=== PATIENT | female | born 1995 | race Caucasian/White ===

== ENCOUNTER 2018-06-24 08:32 | Emergency (ER) | payer OTHER, SELFPAY ==
[2018-06-24 08:46] VITALS: PULSE 76; RESP 12; TEMP 36.5; O2SAT 99
--- NOTE | 2018-06-24 09:47 | DI.RAD_ITS ---
SYMPTOMS/DIAGNOSIS: FELL 3 DAYS AGO LANDING ON LT ANTERIOR KNEE LEFT KNEE: Four views. No bone or joint abnormality is identified. The soft tissues are unremarkable. IMPRESSION: Negative examination.
--- NOTE | 2018-06-24 09:52 | W.ED.GENAD ---
Discharge Plan Discharge Details Chief Complaint: Orthopedic Clinical Impression: Knee contusion, Knee abrasion Reason For Visit: LEFT KNEE INJURY Primary Care Provider: Zoraida Dc ED Provider: Morgan Fernandez Disposition Patient Disposition: HOME Home Meds and New Rx's Prescriptions: New ibuprofen 600 mg tablet 600 mg PO TID MDD 1800mg PRN (Reason: pain) Qty: 30 RF: 0 No Action norgestimate-ethinyl estradiol [Sprintec (28)] 1 EACH tablet 1 tab-cap PO DAILY Qty: 1 RF: 12 Discharge Instructions Additional Instructions: Please use juan manuel wrap during the day and ice at night. Keep abrasion clean and dry no ointments. Rest knee as much as possible during the day. Follow up with orthopedics if no improvement in three weeks. Return to ED if signs of infection develop. Referrals: Matt Nguyen MD [ [facility] STAFF PHYSICIAN] - Discharge Data Discharge Date/Time-TO BE ENTERED AT DEPARTURE: 06/24/18 10:51 HPI - General Adult General Mode of arrival: ambulatory (with limp. ). Date/Time Provider Initiated Documentation: 06/24/18 09:42. Limitations to Documentation: no limitations. Information obtained by: patient and RN notes reviewed. History of Present Illness 22 year old F presents to the emergency department with the chief complaint of Left knee trauma, described as moderate (pain), Quality is described as aching, and is localized to the left and lower extremity.pain Patient reports no radiation. Patient started experiencing this day(s) (3) and it has been constant. Movement worsens symptoms . Patient notes no other symptoms.. Patient did receive the following treatments prior to arrival, none HPI Narrative: Patient reports falling three days as she slipped in her barn on cow manure wearing flip flops. She landed on left anterior knee. She did clean the abrasion to the anterior knee and notices pain with movement and ambulation since the injury. Related Data Previous Rx's Medication Instructions Recorded ibuprofen 600 mg PO TID PRN #30 tab MDD 06/24/18 1800mg Allergies Allergy/AdvReac Type Severity Reaction Status Date / Time clarithromycin [From Biaxin] Allergy Unknown Unverified 06/24/18 08:50 erythromycin estolate Allergy Unknown Unverified 06/24/18 08:50 [From Ilosone] DUST MITES Allergy Unknown Uncoded 06/24/18 08:50 General Stated Complaint: Orthopedic JOMAR: 4 Review of Systems Constitutional Comments: Patient reports tetanus status as up dated this year2017. Musculoskeletal Reports abnormal gait (gaurding left leg) and Reports joint swelling (left knee) Neurologic Reports abnormal gait (gaurding left leg) PFSH Family History Mother No problems noted. Father Diabetes Essential hypertension COPD (chronic obstructive pulmonary disease) Sister No problems noted. Brother Diabetes Grandfather No problems noted. Grandfather Cerebrovascular accident Grandmother Essential hypertension Grandmother No problems noted. Social History Smoking/Tobacco Use Status: Current-Occasional Surgical History ILEUS (11/12/98) Myringotomy w/ PE (pressure equalizing) tubes Tonsillectomy (10/26/12) Exam Const General: cooperative and comfortable Nutritional Appearance: well nourished Orientation: alert, awake and oriented x3 Extrem General: normal capillary refill, no pedal edema, no calf tenderness, abnormal gait (limp) and limp Elbow/forearm/wrist images: 1. Abrasion anterior, with crepitus superior to the patella both medial and lateral. Pain greatest along medial joint line. Left lower extremity: knee Details: abnormal to inspection (abrasion anterior over patella with tissue swelling. Inflammatory redness from abrasion noted without ascending redness or lymphadnopathy. ) Details: erythematous; knee not obviously dislocated, patella not obviously dislocated and without a suprapatellar bulge, tenderness (greatest along medial joint line. ) Location: of the patella (midline ), abnormal ROM (limited flexions secondary to pain) Details: pain with active ROM, knee ligament exam normal, abrasion and crepitus Location: at the patella (superior to patella); Paris's Test not performed and Apley's Test not performed; abnormal ROM (limited flexion secondary to pain. No laxity appreciated. ) Knee images: 1. abrasion and crepitus superior to the patella. Pain greatest along medial joint line. Psych Appearance: well kempt Mental Status: mental status grossly normal Course Vital Signs Temperature 36.5 C 06/24/18 08:46 Pulse 76 06/24/18 08:46 Respiratory Rate 12 06/24/18 08:46 Pulse Oximetry 99 06/24/18 08:46 Temperature 36.5 C 06/24/18 08:46 Pulse 76 06/24/18 08:46 Respiratory Rate 12 06/24/18 08:46 Pulse Oximetry 99 06/24/18 08:46
[2018-06-24] MEDS: Ibuprofen 600 MG TAB PO (09:57)
--- NOTE | 2018-06-24 10:00 | ED.GENADUL_ITS ---
Discharge Plan Discharge Details Chief Complaint: Orthopedic Clinical Impression: Knee contusion, Knee abrasion Reason For Visit: LEFT KNEE INJURY Primary Care Provider: Zoraida Dc ED Provider: Morgan Fernandez Disposition Patient Disposition: HOME Home Meds and New Rx's Prescriptions: New ibuprofen 600 mg tablet 600 mg PO TID MDD 1800mg PRN (Reason: pain) Qty: 30 RF: 0 No Action norgestimate-ethinyl estradiol [Sprintec (28)] 1 EACH tablet 1 tab-cap PO DAILY Qty: 1 RF: 12 Discharge Instructions Additional Instructions: Please use juan manuel wrap during the day and ice at night. Keep abrasion clean and dry no ointments. Rest knee as much as possible during the day. Follow up with orthopedics if no improvement in three weeks. Return to ED if signs of infection develop. Referrals: Matt Nguyen MD [ [facility] STAFF PHYSICIAN] - Discharge Data Discharge Date/Time-TO BE ENTERED AT DEPARTURE: 06/24/18 10:51 HPI - General Adult General Mode of arrival: ambulatory (with limp. ) . Date/Time Provider Initiated Documentation: 06/24/18 09:42 . Limitations to Documentation: no limitations . Information obtained by: patient and RN notes reviewed . History of Present Illness 22 year old F presents to the emergency department with the chief complaint of Left knee trauma, described as moderate (pain), Quality is described as aching, and is localized to the left and lower extremity. pain Patient reports no radiation. Patient started experiencing this day(s) (3) and it has been constant. Movement worsens symptoms . Patient notes no other symptoms.. Patient did receive the following treatments prior to arrival, none HPI Narrative: Patient reports falling three days as she slipped in her barn on cow manure wearing flip flops. She landed on left anterior knee. She did clean the abrasion to the anterior knee and notices pain with movement and ambulation since the injury. Related Data Previous Rx's Medication Instructions Recorded ibuprofen 600 mg PO TID PRN #30 tab MDD 06/24/18 1800mg Allergies Allergy/AdvReac Type Severity Reaction Status Date / Time clarithromycin [From Biaxin] Allergy Unknown Unverified 06/24/18 08:50 erythromycin estolate Allergy Unknown Unverified 06/24/18 08:50 [From Ilosone] DUST MITES Allergy Unknown Uncoded 06/24/18 08:50 General Stated Complaint: Orthopedic JOMAR: 4 Review of Systems Constitutional Comments: Patient reports tetanus status as up dated this year2017. Musculoskeletal Reports abnormal gait (gaurding left leg) and Reports joint swelling (left knee) Neurologic Reports abnormal gait (gaurding left leg) PFSH Family History Mother No problems noted. Father Diabetes Essential hypertension COPD (chronic obstructive pulmonary disease) Sister No problems noted. Brother Diabetes Grandfather No problems noted. Grandfather Cerebrovascular accident Grandmother Essential hypertension Grandmother No problems noted. Social History Smoking/Tobacco Use Status: Current-Occasional Surgical History ILEUS (11/12/98) Myringotomy w/ PE (pressure equalizing) tubes Tonsillectomy (10/26/12) Exam Const General: cooperative and comfortable Nutritional Appearance: well nourished Orientation: alert, awake and oriented x3 Extrem General: normal capillary refill, no pedal edema, no calf tenderness, abnormal gait (limp) and limp Elbow/forearm/wrist images: 2 1. Abrasion anterior, with crepitus superior to the patella both medial and lateral. Pain greatest along medial joint line. Left lower extremity: knee Details: abnormal to inspection (abrasion anterior over patella with tissue swelling. Inflammatory redness from abrasion noted without ascending redness or lymphadnopathy. ) Details: erythematous; knee not obviously dislocated, patella not obviously dislocated and without a suprapatellar bulge, tenderness (greatest along medial joint line. ) Location: of the patella (midline ), abnormal ROM (limited flexions secondary to pain) Details: pain with active ROM, knee ligament exam normal, abrasion and crepitus Location: at the patella (superior to patella); Paris's Test not performed and Apley's Test not performed; abnormal ROM (limited flexion secondary to pain. No laxity appreciated. ) Knee images: 2 1. abrasion and crepitus superior to the patella. Pain greatest along medial joint line. Psych Appearance: well kempt Mental Status: mental status grossly normal Course Vital Signs Temperature 36.5 C 06/24/18 08:46 Pulse 76 06/24/18 08:46 Respiratory Rate 12 06/24/18 08:46 Pulse Oximetry 99 06/24/18 08:46 Temperature 36.5 C 06/24/18 08:46 Pulse 76 06/24/18 08:46 Respiratory Rate 12 06/24/18 08:46 Pulse Oximetry 99 06/24/18 08:46
[2018-06-24 10:52] VITALS: BP 118/80; PULSE 75; RESP 18; TEMP 36.8; O2SAT 99
== END 2018-06-24 10:51 | disposition home or self-care (01) ==
PROVIDERS: Emergency Provider Nurse Practitioner Family; PCP Family Medicine
DX: S80.212A Abrasion, left knee, initial encounter (principal); W18.30XA Fall on same level, unspecified, initial encounter; Y92.71 Barn as the place of occurrence of the external cause
CPT/HCPCS: 99283; 73564

== ENCOUNTER 2018-12-14 12:11 | Emergency (ER) | payer OTHER, SELFPAY ==
[2018-12-14 12:24] VITALS: BP 117/71; PULSE 71; RESP 16; TEMP 36.9; O2SAT 98
--- NOTE | 2018-12-14 12:25 | W.ED.GENAD ---
Discharge Plan Disposition Patient Disposition: HOME Condition: Improving Discharge Details Chief Complaint: GenMedical Clinical Impression: Folliculitis Primary Care Provider: Zoraida Dc ED Provider: Moisés Kearns Home Meds and New Rx's Prescriptions: New sulfamethoxazole-trimethoprim [Bactrim DS] 800-160 mg tablet 1 tab PO BID 7 Days Qty: 14 RF: 0 No Action norgestimate-ethinyl estradiol [Sprintec (28)] 1 EACH tablet 1 tab-cap PO DAILY Qty: 1 RF: 12 ibuprofen 600 mg tablet 600 mg PO TID MDD 1800mg PRN (Reason: pain) Qty: 30 RF: 0 Discharge Instructions Instructions: Folliculitis (ED) Additional Instructions: Warm, moist heat to area to promote circulation and healing. Please take oral antibiotic as prescribed. Return for shaking chill or the development of the fever, worsening and spreading redness, or any other acute concern Medical Decision Making 23 yof presents from home with complaint of left leg erythema that began this week. VSS. There is a punctate area of erythema at the base of a hair follicle on the left pre-tibia, that is consistent with a folliculitis. I will place her on a course of Bactrim. She understands homecare as well as return precautions. HPI General Mode of arrival: ambulatory. Date/Time Provider Initiated Documentation: 12/14/18 12:12. Limitations to Documentation: no limitations. Information obtained by: patient. History of Present Illness 23 year old F presents to the emergency department with the chief complaint of Left leg redness x2 days, described as mild, Quality is described as aching, and is localized to the left and lower extremity. Patient reports no radiation. Patient started experiencing this day(s) and it has been constant. No relieving factors improve symptom(s), No exacerbating factors reported . Patient did receive the following treatments prior to arrival, none Related Data Home Medications Medication Instructions Recorded Confirmed norgestimate-ethinyl estradiol 1 tab-cap PO DAILY #1 pack 03/03/18 [Sprintec] ibuprofen 600 mg PO TID PRN #30 tab MDD 06/24/18 1800mg sulfamethoxazole-trimethoprim 1 tab PO BID 7 Days #14 tab 12/14/18 [Bactrim DS] Previous Rx's Medication Instructions Recorded norgestimate-ethinyl estradiol 1 tab-cap PO DAILY #1 pack 03/03/18 [Sprintec] ibuprofen 600 mg PO TID PRN #30 tab MDD 06/24/18 1800mg sulfamethoxazole-trimethoprim 1 tab PO BID 7 Days #14 tab 12/14/18 [Bactrim DS] Allergies Allergy/AdvReac Type Severity Reaction Status Date / Time clarithromycin [From Biaxin] Allergy Unknown Unverified 12/14/18 12:22 erythromycin estolate Allergy Unknown Unverified 12/14/18 12:22 [From Ilosone] DUST MITES Allergy Unknown Uncoded 12/14/18 12:22 General Stated Complaint: GenMedical JOMAR: 3 Review of Systems Review of Systems 6 Systems reviewed and otherwise negative [facility] Surgical History ILEUS (11/12/98) Myringotomy w/ PE (pressure equalizing) tubes Tonsillectomy (10/26/12) Family History Mother No problems noted. Father Diabetes Essential hypertension COPD (chronic obstructive pulmonary disease) Sister No problems noted. Brother Diabetes Grandfather No problems noted. Grandfather Stroke Grandmother Essential hypertension Grandmother No problems noted. Social History Smoking and Tabacco status: Current-Occasional Exam Narrative Exam Narrative: GEN: awake, alert, oriented 3. Pleasant, well groomed, interactive. HEAD: Normocephalic, atraumatic ENT: Mucous membranes moist, oropharynx unremarkable, External ear exam unremarkable EYES: PERRL, EOMI NECK: Full ROM, no [place], no menigismus EXT: Full ROM, no edema, L anterior mid tibia with small 1-2cm area erythema at base of hair. Neuro: Grossly normal neurologic exam, conversant, interactive. Psych: Speech fluent, thoughts congruent, affect normal Course Vital Signs Temperature 36.9 C 12/14/18 12:24 Pulse 71 12/14/18 12:24 Respiratory Rate 16 12/14/18 12:24 Blood Pressure 117/71 12/14/18 12:24 Pulse Oximetry 98 12/14/18 12:24 Temperature 36.9 C 12/14/18 12:24 Temperature Source Skin 12/14/18 12:24 Pulse 71 12/14/18 12:24 Respiratory Rate 16 12/14/18 12:24 Blood Pressure 117/71 12/14/18 12:24 Pulse Oximetry 98 12/14/18 12:24 Oxygen Delivery Method Room Air 12/14/18 12:24 Oxygen Flow Rate 0 12/14/18 12:24 Pain Level 0 12/14/18 12:24
[2018-12-14 12:49] VITALS: BP 117/71; PULSE 71; RESP 16; TEMP 36.9; O2SAT 98
== END 2018-12-14 12:50 | disposition home or self-care (01) ==
LOC: ER 12:42
PROVIDERS: Emergency Provider Emergency Medicine; PCP Family Medicine
DX: L53.9 Erythematous condition, unspecified (principal); L73.9 Follicular disorder, unspecified
CPT/HCPCS: 99283

== ENCOUNTER 2019-03-16 15:30 | Outpatient (REF) | payer OTHER, SELFPAY ==
--- NOTE | 2019-03-16 14:30 | PAPFT_PTH ---
PATIENT: Aby Mcelroy LOC: LAY U#:[id number] AGE/SX: 23/F ROOM: RE03/16/[address]: KARI Daniels : 1995 BED: DIS: 03/16/2019 SPEC #: [id number] RECD: 03/16/19 17:40 STATUS: BRAVO RELaura #: [id number] BRIEN: 03/16/19 14:[address]: Tara Armenta DEPT: [facility] Cytology RECD BY: Frieda Cohen ENTERED: 03/16/19 17:40 SP TYPE: PAPFT JONES DR: Zoraida Dc MD, DC Tissues: 1 - CX/ENDOCX FOR PAP SMEARS Procedures: PAP THIN PREP/[facility] Screening Comments: [id number]
[2019-03-18 13:53] LABS: Chlamydia Result Negative; GC Result Negative; Specimen Description CERVIX
== END 2019-03-16 15:50 ==
LOC: LBN 15:30
PROVIDERS: PCP Family Medicine; Visit Provider Nurse Practitioner Family
DX: Z11.3 Encounter for screening for infections with a predominantly sexual mode of transmission (principal); Z12.4 Encounter for screening for malignant neoplasm of cervix
CPT/HCPCS: 87491; 87591; 88142

== ENCOUNTER 2019-12-16 13:53 | Outpatient (CLI) | payer OTHER, SELFPAY ==
[2019-12-16 15:55] LABS: TSH (W/Ref FT4) 4.15 uIU/mL (0.36-3.74)
[2019-12-16 16:28] LABS: FREE T4 0.96 ng/dL (0.76-1.46)
== END 2019-12-16 14:13 ==
PROVIDERS: PCP Family Medicine; Visit Provider Nurse Practitioner Family
DX: N91.5 Oligomenorrhea, unspecified (principal)
CPT/HCPCS: 36415; 84439; 84443

== ENCOUNTER → 2020-01-04 10:37 | Outpatient (REF) | payer OTHER, SELFPAY ==
[2020-01-04 12:20] LABS: HCT 44.8 % (36.0-46.0); HGB 15.1 g/dL (12.0-15.5); Mean Corp. HGB Concentration 33.7 g/dL (32.0-36.0); Mean Corpuscular Hemoglobin 29.9 pg (27.0-33.0); Mean Corpuscular Volume 88.7 fL (80-95); Mean Platelet Volume 9.5 fL (8.0-11.0); Platelet Count 365 x1000/uL (130-400); RBC 5.05 m/cumm (4.00-5.20); RBC Distribution Width 12.7 % (11.7-14.6); White Blood Cell Count 8.47 k/cumm (4.4-10.8)
[2020-01-04 12:41] LABS: TSH (W/Ref FT4) 4.29 uIU/mL (0.36-3.74)
[2020-01-04 13:07] LABS: FREE T4 0.81 ng/dL (0.76-1.46)
== END ==
LOC: NCHCN 10:37
PROVIDERS: PCP Nurse Practitioner Family; Visit Provider Nurse Practitioner Family
DX: R63.5 Abnormal weight gain (principal); Z31.9 Encounter for procreative management, unspecified
CPT/HCPCS: 85027; 84439; 84443

== ENCOUNTER → 2021-05-24 14:46 | Outpatient (CLI) | payer BC, SELFPAY ==
--- NOTE | 2021-05-24 | DI.RAD_ITS ---
Exam(s) XR FOOT LT COMPLETE EXAM: XR FOOT LT COMPLETE CLINICAL HISTORY: PAIN IN FOOT M79.672. TECHNIQUE: 2D digital imaging was performed. COMPARISON: CR RIGHT FOOT COMPLETE from 04/18/2009 FINDINGS: There is no evidence of fracture nor diastasis of the Dayan javier joint. Bone density is normal. Ther e are no osseous lesions nor erosions. No pes planus. No obvious degenerative changes. No inferior calcaneal spur. There is no osseous tarsal coalition. IMPRESSION: DATA REPOSITORY: RADIATION DOSE DELIVERED:
--- NOTE | 2021-05-24 | DI.RAD_ITS ---
Exam(s) XR TIB/FIB LT EXAM: XR TIB/FIB LT CLINICAL HISTORY: PAIN IN LOWER LT LEG M79.662. TECHNIQUE: 2D digital imaging was performed. COMPARISON: No exams were available for comparison FINDINGS: There is no evidence of fracture. No radiopaque foreign body. No osseous lesions. Bone density is normal. Sign rib IMPRESSION: DATA REPOSITORY: RADIATION DOSE DELIVERED:
--- NOTE | 2021-05-24 | DI.RAD_ITS ---
Exam(s) XR ANKLE LT COMPLETE EXAM: XR ANKLE LT COMPLETE CLINICAL HISTORY: PAIN IN ANKLE M25.572. TECHNIQUE: 2D digital imaging was performed. COMPARISON: No exams were available for comparison FINDINGS: There is no evidence of fracture or widening of the mortise. Talar dome appears unremarkable. No de generative changes. Bone density is normal. No osseous lesions. No evidence of osseous tarsal coal ition. IMPRESSION: DATA REPOSITORY: RADIATION DOSE DELIVERED:
== END ==
PROVIDERS: PCP Nurse Practitioner Family; Visit Provider Physician Assistant Medical
DX: M79.662 Pain in left lower leg (principal); M79.672 Pain in left foot; M25.572 Pain in left ankle and joints of left foot
CPT/HCPCS: 73590; 73610; 73630

== ENCOUNTER 2021-10-24 15:48 | Outpatient (REF) | payer BC, SELFPAY ==
[2021-10-26 16:27] LABS: COVID-19 RT-PCR UVMMC Result Negative (Negative)
== END 2021-10-24 15:49 | disposition home or self-care (01) ==
LOC: LBN 15:48
PROVIDERS: PCP Nurse Practitioner Family; Visit Provider Physician Assistant Medical
DX: Z20.822 Contact with and (suspected) exposure to COVID-19 (principal)
CPT/HCPCS: U0003

== ENCOUNTER 2022-02-01 10:01 | Outpatient (REF) | payer BC, SELFPAY ==
--- NOTE | 2022-02-01 09:15 | PAPFT_PTH ---
PATIENT: Aby Mcelroy LOC: [facility] U#:[id number] AGE/SX: 26/F ROOM: RE02/01/[address]: KARI Daniels : 1995 BED: DIS: 02/01/2022 SPEC #: [id number] RECD: 02/01/22 12:56 STATUS: BRAVO REQ #: [id number] BRIEN: 02/01/22 09:[address]: Tara Armenta DEPT: [facility] Cytology RECD BY: Frieda Cohen ENTERED: 02/01/22 12:56 SP TYPE: PAPFT OTHR DR: Josué Montemayor Tissues: 1 - CX/ENDOCX FOR PAP SMEARS Procedures: PAP THIN PREP/[facility] Screening Comments: [id number]
== END 2022-02-01 10:02 | disposition home or self-care (01) ==
LOC: LBN 10:01
PROVIDERS: PCP Nurse Practitioner Family; Visit Provider Nurse Practitioner Family
DX: Z12.4 Encounter for screening for malignant neoplasm of cervix (principal)
CPT/HCPCS: 88142

== ENCOUNTER 2022-04-24 17:45 | Outpatient (REF) | payer BC, SELFPAY ==
[2022-04-24 20:47] LABS: TSH (W/Ref FT4) 4.73 uIU/mL (0.36-3.74)
[2022-04-24 21:06] LABS: FREE T4 0.81 ng/dL (0.76-1.46)
[2022-04-25 19:10] LABS: Thyroperoxidase Antibody 34 U/mL (<=60)
== END 2022-04-24 17:46 | disposition home or self-care (01) ==
LOC: NCHCN 17:45
PROVIDERS: PCP Nurse Practitioner Family; Visit Provider Family Medicine
DX: E03.9 Hypothyroidism, unspecified (principal)
CPT/HCPCS: 84439; 84443; 86376

== ENCOUNTER 2022-06-25 17:05 | Outpatient (REF) | payer BC, SELFPAY ==
[2022-06-25 20:00] LABS: Anion Gap 11.9 mmol/L (3-11); BUN 15 mg/dL (7-18); CO2 25.1 mmol/L (21.0-32.0); CREATININE 0.9 mg/dL (0.55-1.02); Calcium 9.1 mg/dL (8.5-10.1); Chloride 99 mmol/L (98-107); Estimated GFR 89.86 (mL/min/1.73m2); Glucose 87 mg/dL (74-106); Magnesium 1.7 mg/dL (1.8-2.4); Sodium 136 mmol/L (136-145); TSH (W/Ref FT4) 1.91 uIU/mL (0.36-3.74)
== END 2022-06-25 17:06 | disposition home or self-care (01) ==
LOC: NCHCN 17:05
PROVIDERS: PCP Nurse Practitioner Family; Visit Provider Family Medicine
DX: R00.2 Palpitations (principal)
CPT/HCPCS: 80048; 83735; 84443

== ENCOUNTER 2023-08-12 11:36 | Outpatient (REF) | payer SELFPAY ==
[2023-08-12 16:36] LABS: Calculated LDL 66 mg/dL (<100); Cholesterol 157 mg/dL (<200); HDL Cholesterol 46 mg/dL (40-60); Magnesium 2.1 mg/dL (1.8-2.4); TSH (W/Ref FT4) 1.18 uIU/mL (0.36-3.74); Triglyceride 225 mg/dL (<150)
[2023-08-13 11:54] LABS: HIV-1/2 Ag & Ab Screen Negative (Negative)
[2023-08-13 12:13] LABS: Hepatitis C Ab w Rflx HCV PCR Negative (Negative)
== END 2023-08-12 11:37 | disposition home or self-care (01) ==
LOC: NCHCN 11:36
PROVIDERS: Visit Provider Family Medicine
DX: E83.42 Hypomagnesemia (principal); Z00.00 Encounter for general adult medical examination without abnormal findings; E03.9 Hypothyroidism, unspecified; Z11.59 Encounter for screening for other viral diseases
CPT/HCPCS: 80061; 86803; 87389; 83735; 84443

== ENCOUNTER 2024-03-22 04:54 | Outpatient (CLI) | payer BC, SELFPAY ==
[2024-03-22 15:05] LABS: Glucose,1 Hr (Glucola) 140 mg/dL (80-140)
[2024-03-22 15:17] LABS: Panorama Kit Sent via Fed Ex
[2024-03-22 15:23] LABS: Abs Immature Grans 0.07 10^3/uL (0.0-0.06); Absolute Eosinophil Count 0.12 10^3/uL (0.0-0.7); Absolute Lymphocyte Count 2.75 10^3/uL (1.2-3.4); Absolute Neutrophil Count 10.03 10^3/uL (1.2-6.7); Basophils % 0.1 %; Eosinophils % 0.9 %; HCT 34.9 % (36.0-46.0); HGB 12.5 g/dL (11.2-15.7); Immature Grans % 0.5 %; Lymphocytes % 20.2 %; MCH 30.7 pg (27.0-33.0); MCHC 35.8 % (32.0-36.0); MCV 86 fL (80-95); MPV 9.6 fL (8.0-11.0); Monocytes % 4.6 %; Neutrophils % 73.7 %; Platelet Count 324 10^3/uL (130-400); RBC 4.07 10^6/uL (3.93-5.22); RDW 11.3 % (11.7-14.6); RDW-SD 34.8 fL; WBC 13.61 10^3/uL (4.4-10.8)
[2024-03-22 15:30] LABS: Absolute Basophil Count 0.01 10^3/uL (0.0-0.2); Absolute Monocyte Count 0.63 10^3/uL (0.1-0.8)
[2024-03-22 16:37] LABS: TSH (W/Ref FT4) 1.42 uIU/mL (0.36-3.74)
[2024-03-22 23:20] LABS: Hepatitis B Surface Ag Negative (Negative)
[2024-03-22 23:44] LABS: Hepatitis C Ab w Rflx HCV PCR Negative (Negative)
[2024-03-22 23:58] LABS: HIV-1/2 Ag & Ab Screen Negative (Negative)
[2024-03-23 10:41] LABS: Varicella IgG Antibody Positive (See Note)
[2024-03-23 10:47] LABS: Rubella IgG Ab (UVM) Positive (See Note)
[2024-03-24 19:16] LABS: Syphilis IgG w/Reflex Nonreactive (Nonreactive)
== END 2024-03-22 04:55 | disposition home or self-care (01) ==
LOC: LBO 04:55
PROVIDERS: Visit Provider Advanced Practice Midwife
DX: Z34.91 Encounter for supervision of normal pregnancy, unspecified, first trimester (principal); Z3A.12 12 weeks gestation of pregnancy
CPT/HCPCS: 36415; 82950; 86787; 86803; 86850; 86900; 86901; 87340; 87389; 84443; 85025; 86762; 86780

== ENCOUNTER 2024-03-22 14:19 | Outpatient (REF) | payer BC, SELFPAY ==
[2024-03-24 15:01] LABS: Chlamydia Result Negative (Negative); GC Result Negative (Negative)
== END 2024-03-22 14:20 | disposition home or self-care (01) ==
LOC: LBN 14:19
PROVIDERS: Visit Provider Advanced Practice Midwife
DX: Z34.91 Encounter for supervision of normal pregnancy, unspecified, first trimester (principal); Z3A.12 12 weeks gestation of pregnancy
CPT/HCPCS: 87491; 87591; 87086

== ENCOUNTER 2024-04-19 15:28 | Outpatient (REF) | payer BC, SELFPAY ==
[2024-04-19 17:51] LABS: *AMPHETAMINES SCREEN URINE Negative (Negative); *BARBITURATES SCREEN URINE Negative (Negative); *BENZODIAZEPINES SCREEN URINE Negative (Negative); Cannabinoids THC Negative (Negative); Cocaine Screen,Urine Negative (Negative); METHADONE URINE SCREEN Negative (Negative); OPIATES URINE SCREEN Negative (Negative); Tricyclic Antidepressants Negative (Negative)
[2024-04-20 12:24] LABS: Fentanyl Scr w/Rfx Confirm Negative ng/mL (<1)
[2024-04-24 14:28] LABS: Buprenorphine Negative ng/mL (Cutoff: 5.0); Norbuprenorphine Negative ng/mL (Cutoff: 2.5)
== END 2024-04-19 15:29 | disposition home or self-care (01) ==
LOC: LBN 15:28
PROVIDERS: Visit Provider Advanced Practice Midwife
DX: Z81.3 Family history of other psychoactive substance abuse and dependence (principal); Z34.90 Encounter for supervision of normal pregnancy, unspecified, unspecified trimester
CPT/HCPCS: 80307; 80348

== ENCOUNTER 2024-04-23 02:37 | Outpatient (CLI) | payer BC, SELFPAY ==
[2024-04-23 09:05] LABS: Glucose 1 Hour 120 mg/dL
[2024-04-23 11:02] LABS: Glucose 3 Hour 97 mg/dL
[2024-04-26 16:34] LABS: Specimen WB Whole Blood
[2024-04-27 11:54] LABS: AFP 46.9 ng/mL; Calculated age at EDD 29 years; GA used in risk estimate Scan estimate; IVF Pregnancy No; Initial or repeat testing Initial testing; Insulin dependent diabetes No; Maternal Weight 174 lbs; Number of Fetuses 1; Physician Phone Number 802-748-7300; Prev Pregnancy w/NTD No; RECOMMENDED FOLLOW UP None.; Results Summary Normal risk
[2024-05-04 20:39] LABS: Result Summary NEGATIVE; Specimen WB Whole Blood
== END 2024-04-23 02:38 | disposition home or self-care (01) ==
LOC: LBO 02:37
PROVIDERS: Visit Provider Advanced Practice Midwife
DX: Z34.90 Encounter for supervision of normal pregnancy, unspecified, unspecified trimester (principal); R73.09 Other abnormal glucose
CPT/HCPCS: 36415; 81220; 81222; 81329; 82105; 82951

== ENCOUNTER 2024-05-17 09:50 | Outpatient (REF) | payer BC, SELFPAY | END 2024-05-17 09:51 | disposition home or self-care (01) | LOC: LBN 09:50 | PROVIDERS: Visit Provider Advanced Practice Midwife | DX: O26.892 Other specified pregnancy related conditions, second trimester (principal); N89.8 Other specified noninflammatory disorders of vagina; Z3A.20 20 weeks gestation of pregnancy | CPT/HCPCS: 87480; 87510; 87660 ==

== ENCOUNTER 2024-07-12 02:56 | Outpatient (CLI) | payer BC, SELFPAY ==
[2024-07-12 08:39] LABS: HCT 33.2 % (36.0-46.0); HGB 11.5 g/dL (11.2-15.7); MCH 30.4 pg (27.0-33.0); MCHC 34.6 % (32.0-36.0); MCV 88 fL (80-95); MPV 9.6 fL (8.0-11.0); Platelet Count 300 10^3/uL (130-400); RBC 3.78 10^6/uL (3.93-5.22); RDW 12.4 % (11.7-14.6); RDW-SD 39.5 fL; WBC 18.51 10^3/uL (4.4-10.8)
[2024-07-12 08:58] LABS: Glucose 1 Hour 147 mg/dL
[2024-07-12 11:18] LABS: Glucose 3 Hour 120 mg/dL
[2024-07-12 11:34] LABS: TSH (W/Ref FT4) 2.89 uIU/mL (0.36-3.74)
== END 2024-07-12 02:57 | disposition home or self-care (01) ==
LOC: LBO 02:56
PROVIDERS: Visit Provider Advanced Practice Midwife
DX: Z34.93 Encounter for supervision of normal pregnancy, unspecified, third trimester (principal); E03.9 Hypothyroidism, unspecified
CPT/HCPCS: 36415; 85027; 82951; 84443

== ENCOUNTER 2024-07-12 09:56 | Outpatient (REF) | payer BC, SELFPAY ==
[2024-07-12 11:04] LABS: *AMPHETAMINES SCREEN URINE Negative (Negative); *BARBITURATES SCREEN URINE Negative (Negative); *BENZODIAZEPINES SCREEN URINE Negative (Negative); Cannabinoids THC Negative (Negative); Cocaine Screen,Urine Negative (Negative); METHADONE URINE SCREEN Negative (Negative); OPIATES URINE SCREEN Negative (Negative); Tricyclic Antidepressants Negative (Negative)
[2024-07-13 11:56] LABS: Fentanyl Scr w/Rfx Confirm Negative ng/mL (<1)
[2024-07-16 11:13] LABS: Buprenorphine Negative ng/mL (Cutoff: 5.0); Norbuprenorphine Negative ng/mL (Cutoff: 2.5)
== END 2024-07-12 09:57 | disposition home or self-care (01) ==
LOC: LBN 09:56
PROVIDERS: Visit Provider Advanced Practice Midwife
DX: Z81.3 Family history of other psychoactive substance abuse and dependence (principal); Z34.93 Encounter for supervision of normal pregnancy, unspecified, third trimester
CPT/HCPCS: 80307; 80348

== ENCOUNTER 2024-08-09 01:49 | Outpatient (CLI) | payer BC, SELFPAY ==
--- NOTE | 2024-08-09 06:00 | DI.US_ITS ---
Exam(s) US OB RENEE WEIGHT EXAM: US OB RENEE WEIGHT CLINICAL HISTORY: ,GESTATIONAL DIABETES,o24.419. TECHNIQUE: Transabdominal obstetrical ultrasound was performed. COMPARISON: US US OB 2-3 TRIMESTER from 05/07/2024 FINDINGS: There is a single viable intrauterine gestation with cardiac activity identified-135 bpm The fetus is presently in cephalic position . Amniotic fluid: There is a normal amount of amniotic fluid with an RENEE of 17.65cm. Placental location: The placenta is posterior grade 2,with no evidence of placenta previa. Dating parameters place this at approximately 32 weeks and 5 days gestational age, implying ABDIEL of September 29, 2024. BPD measures 32 weeks and 3 days HC measures 32 weeks and 6 days AC measures 32 weeks and 2 days FL measures 33 weeks and 1 day Estimated weight is 2011 gm-4 pound 7 ounces Fetus is at the 54th percentile on the Hadlock scale. IMPRESSION:: Viable 3rd trimester gestation, as described above. DATA REPOSITORY:
== END 2024-08-09 02:09 ==
LOC: DI 01:50
PROVIDERS: Visit Provider Advanced Practice Midwife
DX: O24.419 Gestational diabetes mellitus in pregnancy, unspecified control (principal); Z3A.32 32 weeks gestation of pregnancy
CPT/HCPCS: 76816

== ENCOUNTER 2024-09-03 02:01 | Outpatient (CLI) | payer BC, SELFPAY ==
[2024-09-03 10:16] LABS: TSH (W/Ref FT4) 2.74 uIU/mL (0.36-3.74)
== END 2024-09-03 02:02 | disposition home or self-care (01) ==
LOC: LBO 02:01
PROVIDERS: Visit Provider Advanced Practice Midwife
DX: E03.9 Hypothyroidism, unspecified (principal); Z34.93 Encounter for supervision of normal pregnancy, unspecified, third trimester
CPT/HCPCS: 36415; 84443

== ENCOUNTER 2024-09-06 01:35 | Outpatient (CLI) | payer BC, SELFPAY ==
--- NOTE | 2024-09-06 06:15 | DI.US_ITS ---
Exam(s) US OB RENEE WEIGHT EXAM: US OB RENEE WEIGHT CLINICAL HISTORY: gest. diabetes,O24.419. TECHNIQUE: Transabdominal obstetrical ultrasound was performed. COMPARISON: US US OB RENEE WEIGHT from 08/09/2024 FINDINGS: There is a single viable intrauterine gestation with cardiac activity identified-138 bpm The fetus is presently in cephalic position . Amniotic fluid: There is a normal amount of amniotic fluid with an RENEE of 16.6cm. Placental location: The placenta is posterior grade 2,with no evidence of placenta previa. Dating parameters place this at approximately 36 weeks and 2 days gestational age, implying ABDIEL of October 02, 2024. BPD measures 35 weeks and 5 days HC measures 36 weeks and 5 days AC measures 36 weeks and 1 day FL measures 36 weeks and 2 days Estimated weight is 2870 gm-6 pounds, 5 ounces Fetus is at the 53rd percentile on the Hadlock scale. IMPRESSION:: Viable 3rd trimester gestation, as described above. DATA REPOSITORY:
== END 2024-09-06 01:55 ==
LOC: DI 01:36
PROVIDERS: Visit Provider Advanced Practice Midwife
DX: O24.414 Gestational diabetes mellitus in pregnancy, insulin controlled (principal); Z3A.36 36 weeks gestation of pregnancy
CPT/HCPCS: 76816

== ENCOUNTER 2024-09-06 14:49 | Outpatient (REF) | payer BC, SELFPAY | END 2024-09-06 14:50 | disposition home or self-care (01) | LOC: LBN 14:49 | PROVIDERS: Visit Provider Obstetrics & Gynecology | DX: Z34.93 Encounter for supervision of normal pregnancy, unspecified, third trimester (principal); Z3A.36 36 weeks gestation of pregnancy | CPT/HCPCS: 87081 ==

== ENCOUNTER 2024-09-22 10:06 | Outpatient (CLI) | payer BC, SELFPAY ==
[2024-09-22 10:17] VITALS: BP 118/66; PULSE 81; TEMP 36.7
[2024-09-22 10:31] VITALS: BP 118/66; PULSE 81
[2024-09-22 12:04] VITALS: BP 118/66; PULSE 81; TEMP 36.7
--- NOTE | 2024-09-22 12:04 | W.OBNST ---
Date of service: 09/22/24 Time of Service: 12:04 NST Evaluation Reason for NST Reasons for Nonstress Test: GDM-INSULIN Gestational Age Gestational Age in Weeks and Days: 38 Weeks and 3Days Test and Monitor Explained Test/Monitor Explained: Test Explained, Monitor Explained and Patient Verbalized Understanding Vital Signs Blood Pressure: 118/66 Pulse: 81 Temperature: 98.1 F Urine Results Urine Protein: Negative Urine Ketones: Negative Urine Glucose: Negative Urine Blood: Negative NST Information Date on Monitor: 09/22/24 Time on Monitor: 10:15 Date off Monitor: 09/22/24 Time off Monitor: 10:55 Total Time on Monitor: 40 NST Interventions: None Contraction Frequency: Occasional NST Evaluation Patient States Movement: Present FHR Baseline: 145 Variability: Moderate 6-25 bpm Accelerations: 15x15 Decelerations: None NST Results: Reactive Note Ultrasound Done: N/A. NST Note Note: Category 1, reactive nonstress test NST Reviewed and Verified by: Meryl Urbina
== END 2024-09-22 12:15 ==
LOC: BCD 10:10 → OBS 10:13
PROVIDERS: PCP Obstetrics & Gynecology; Visit Provider Obstetrics & Gynecology
DX: O24.414 Gestational diabetes mellitus in pregnancy, insulin controlled (principal); Z3A.38 38 weeks gestation of pregnancy
CPT/HCPCS: 59025

== ENCOUNTER 2024-09-26 17:25 | Inpatient (IN) | payer BC, SELFPAY ==
--- NOTE | 2024-09-22 14:51 | W.PM.OBHPL1 ---
Date of service: 09/22/24 Time of Service: 14:52 Assessment and Plan Assessment and plan (1) : Status: Acute Assessment and plan: Term with an insulin requiring gestational diabetic. Will schedule labor induction at 39 weeks. She will have cervical ripening followed by Pitocin augmentation. I would anticipate a vaginal . Last ultrasound was just over the 50th percentile with appropriate fluid and baby in the vertex position. All questions answered. She will present to the center on 09/26/2024 for misoprostol for cervical ripening followed by Pitocin. (2) Gestational diabetes requiring insulin: Status: Acute OB-HPI Labor/Delivery History of Present Illness Reason for Visit: Labor induction, GDM, insulin. Chief Complaint: Scheduled Induction of Labor Indication for Induction: Gestational Diabetes (Insulin requiring, 39 weeks). ABDIEL Calculator Estimated Delivery Date Method Current WG Current Estimate 10/03/24 LMP (Certain) 38w 3d Other Estimates 10/08/24 Ultrasound #1 37w 5d Comments: Patient 28-year-old female primigravida with an EDC of 10/03/2024. She was initially seen by our midwifery service and transitioned her care to physician care due to gestational diabetes which became insulin requiring. She has been using NPH, 6 units at bedtime. She has had reasonably appropriate glycemic control with an appropriately grown baby. She was seen in the office today with a cervical examination and her cervix is fingertip, 60%, anterior, soft. We had a lengthy conversation regarding labor induction which includes its risks and benefits. She will present for cervical ripening to the center 09/26/2024 for subsequent Pitocin augmentation. All of her questions were answered. History of Present Expected Delivery Route/Plan - CNM. change to MD ko @ 33 wks due to need for insulin FOB - David LOCO yes to circ Labor support from David, sister, Elvie and Mom Kristine Wants epidural Specific Issues/Plan 1. Hypothyroidism - Levothyroxine, TSH at initial- 1.42, 28wk=2.89 (nml); repeat @ 34=35 wks-2.74 2. BMI 32, early gdyxyhx=000, 3 hr GTT nml x4 - Repeat 3 hr GTT @ 28 wks= fasting 103, other 3 levels nml, will do 2 wks QID home monitoring - Increased risk PEC - ASA 3. [facility] declines neuro visit but will call if symptoms worsen- Takes magnesium 250 mg PO daily 4. 5 P's + based on past use of marijuana and family history of alcohol and drug abuse 5a. initial UDS=negative, repeat @ 28 wks negative 5. Covid 06/04- paxlovid not covered by insurance, antiemetics and hydration recommended. 6. A2GDM: 28wk screen elevated - Started NPH 4, then 6U: well controlled at 36wks - Growth sono: 32 wk EFW in 54th percentile, RENEE 17.6, cephalic presentation 36 wks - 53%ile and RENEE 16 7. Sudden loss of her brother 09/03 - Referral to [facility]: pt concerned about pp depression - cfDNA: low risk x5 male, CF neg, SMA negative, desires AFP=nml risk for NTD Review of Systems All systems reviewed & are unremarkable except as noted in HPI and below Eyes Eyes: Reports as per HPI and Reports system reviewed and no additional complaints, except as documented ENT Ears, Nose, Mouth, and Throat: Reports system reviewed and no additional complaints, except as documented and Reports as per HPI Cardiovascular Cardiovascular: Reports system reviewed and no additional complaints, except as documented, Denies chest pain and Denies irregular heart rhythm Respiratory Respiratory: Reports system reviewed and no additional complaints, except as documented, Denies chest congestion and Denies cough Gastrointestinal Gastrointestinal: Reports system reviewed and no additional complaints, except as documented Genitourinary Genitourinary: Reports system reviewed and no additional complaints, except as documented Neurologic Neurologic: Reports system reviewed and no additional complaints, except as documented PFSH All Active Problems (Updated 09/13/24 @ 09:40 by Bridgett Hollis) Grief (Chronic) Gestational diabetes requiring insulin (Acute) Hypothyroid (Chronic) (Acute) Medical History Family history of diabetes mellitus Family history of drug use Elevated TSH Vaginal discharge during History of tobacco abuse Surgical History (System 09/03/23 @ 15:47 by Jesenia Padron) Status post tonsillectomy Tonsillectomy (10/26/12) Myringotomy w/ PE (pressure equalizing) tubes AN ILEUS (11/12/98) Family History (Updated 03/22/24 @ 13:37 by Brenna L Ashlie, CNM) Mother Diabetes Father Diabetes Essential hypertension COPD (chronic obstructive pulmonary disease) Emphysema lung Hypertension Substance use disorder Sister No problems noted. Brother Diabetes Alcohol abuse Substance use disorder Maternal Grandfather Heart disease Alcohol abuse Paternal Grandfather Stroke Alcohol abuse Maternal Grandmother Essential hypertension Paternal Grandmother Arthritis Social History (System 09/03/23 @ 15:47 by Jesenia Padron) Smoking/Tobacco Use Status: Current every day Tobacco Type: cigarettes Quit status: considering quitting Second Hand Exposure: Yes Smoking risk assessment performed?: Yes Alcohol Intake: current Alcohol Intake frequency: 0-2 drinks per day Alcohol type: beer Drug use: Never Substance use type: does not use Caregiver/Support person: No Household members: significant other Housing: house Communication Needs: None Pets and animals: Yes Pets and animals: dog(s) and horse(s) Sexually active: Yes Do you think of yourself as: straight/heterosexual Current gender identity: female What is your relationship status?: living with partner How often do you talk on the phone with friends or family?: three or more times per week How often do you get together with friends or relatives?: three or more times per week How often do you attend samaritan or congregation services?: 1-3 times per year Do you belong to any clubs or organized social groups?: no Panel score (0-1 are the most socially isolated patients): 2 What type of physical activity do you participate in: other Details: Dance Duration: 45-60 minutes/day Frequency: 1-2 times per week Mirna/Adventism: Jain Special mirna needs: No Seatbelt use: always Drive intox or ride w/intox auto transport driver: No Do you feel safe in your relationship?: Yes Female Reproductive History Menstrual control method: pills History History 1 Para 0 Hx # Term Pregnancies 0 Multiple births 0 Hx # Pregnancies 0 Ectopic pregnancies 0 AB induced 0 Hx Number of Living Children 0 AB spontaneous 0 Meds Allergies and Home Medications Allergies Allergy/AdvReac Type Severity Reaction Status Date / Time clarithromycin (From Biaxin) Allergy Unknown Other (See Verified 09/15/24 09:43 Comment) erythromycin estolate (From Allergy Unknown Other (See Verified 09/15/24 09:43 Ilosone) Comment) asparagus Allergy Nausea Unverified 09/15/24 09:43 DUST MITES Allergy Unknown Other (See Uncoded 09/15/24 09:43 Comment) red wine Allergy Other (See Uncoded 09/15/24 09:43 Comment) Home Medications ?Medication ?Instructions ?Recorded ?Confirmed ?Type hydroxyzine HCl 25 mg tablet mg PO 02/06/24 09/22/24 History magnesium citrate,mag oxide 250 mg 500 mg PO DAILY 05/17/24 09/22/24 History capsule blood-glucose meter (FreeStyle #1 ea 07/12/24 09/22/24 Rx Lite Meter kit) blood sugar diagnostic (FreeStyle #100 ea 07/19/24 09/22/24 Rx Lite Strips) lancets 28 gauge (FreeStyle #100 ea 07/28/24 09/22/24 Rx Lancets) levothyroxine 25 mcg tablet 25 mcg PO DAILY #30 tabs 08/20/24 09/22/24 Rx pen needle, diabetic 29 gauge x #100 ea 08/20/24 09/22/24 Rx 1/2 (Ultra-Thin II Insulin Pen [place]) insulin NPH isoph U-100 human 100 6 unit (0.06 mL) subcut QPM #15 mL 08/25/24 09/22/24 Rx unit/mL (3 mL) subcutaneous pen (Novolin N FlexPen) Exam Physical Exam Vital signs: heart tones 150s. Weight 201, blood pressure 132/90 Vital Signs Reviewed: Yes Constitutional Constitutional: no acute distress Detailed Labor and Delivery Exam Interiano Score: Cervical Points Exam 0 1 2 3 Dilation Closed 1-2cm 3-4 cm 5-6cm Effacement 0-30% 40-50% 60-70% 80% Consistency Firm Medium Soft Station -3 -2 -1,0 +1,+2 Position Posterior Mid Anterior Fetus A Heart Rate Baseline: 150 Monitor Accelerations: 15 X 15 Monitor Decelerations: None Variability: Moderate (6-25 BPM) Presentation: Cephalic Categories: Category I Assessment Note: Category 1, reactive nonstress test on 09/22/2024 HEENT Exam HEENT Exam: Normal Neck Exam Neck Exam: Normal Chest/Brest/Axilla Exam Chest Exam: Normal Respiratory Exam Respiratory Exam: Normal Cardiovascular Exam Cardiovascular Exam: Normal Abdominal Exam Abdominal Exam: Normal (Gravid, vertex by Beau's) Exam Exam: Normal Extremities Exam Extremities Exam: Normal Back/Spine/Pelvis Exam Pelvis Adequate: Yes Skin Exam Skin Exam: Normal Neurological Exam Neurological Exam: Normal Psychiatric Exam Psychiatric Exam: Normal Risk Assessment Risk for Shoulder Dystocia Historical/Initial OB: POSITIVE FOR: Pre- BMI>30; NEGATIVE FOR: Pelvic Abnormality, Previous Shoulder Dystocia or Previous Macrosomia Risk for Pre-Eclampsia Date Initiated/Initials: 03/22/24 KH Yes, if one or more: NEGATIVE FOR: Hx Pre-E/Gest HTN, Chronic HTN, Multiple Gestation, Pre-gestational DM, Renal Disease, Systemic Lupus or APA Syndrome Yes, if 2 or more: POSITIVE FOR: Nulliparity and BMI>30; NEGATIVE FOR: Age>= 35 yrs, >10yr btwn pregnancies, ethinicty, Mother/Sister w/ Pre-E or Previous IUGR Risk for Post- Hemorrhage Initial: NEGATIVE FOR: Multiple Gestation, Previous PPH, Known Clotting Deficiency, Grand Multiparity or Anticoagulation Risks Reviewed Risks Reviewed Upon Admission: Yes
[2024-09-26] VITALS (37 sets, daily range): BP systolic 111–135; BP diastolic 59–80; PULSE 0–108; RESP 17; TEMP 36.6–37.1; O2SAT 99
[2024-09-26 17:53] LABS: HCT 36.1 % (36.0-46.0); HGB 12.3 g/dL (11.2-15.7); MCH 29.8 pg (27.0-33.0); MCHC 34.1 % (32.0-36.0); MCV 87 fL (80-95); MPV 10.5 fL (8.0-11.0); Platelet Count 248 10^3/uL (130-400); RBC 4.13 10^6/uL (3.93-5.22); RDW-SD 40.9 fL; WBC 17.19 10^3/uL (4.4-10.8)
[2024-09-26] MEDS: miSOPROStol 25 MCG TAB PO ×2 (18:19→22:18)
[2024-09-26 18:32] LABS: *AMPHETAMINES SCREEN URINE Negative (Negative); *BARBITURATES SCREEN URINE Negative (Negative); *BENZODIAZEPINES SCREEN URINE Negative (Negative); Cannabinoids THC Negative (Negative); Cocaine Screen,Urine Negative (Negative); OPIATES URINE SCREEN Negative (Negative); Tricyclic Antidepressants Negative (Negative)
[2024-09-26] MEDS: Zolpidem 5 MG TAB 10 MG PO (22:17)
--- NOTE | 2024-09-26 23:16 | W.PM.OBNL1 ---
Date of service: 09/26/24 Time of Service: 18:00 Informed Consent Informed Consent: Induction of Labor (Misoprostol for cervical ripening.) and Risk,Benefits,Alternatives Discussed Pelvic Exam Comments: SVE deferred. Previously performed in office on 09/24/24. At that time Interiano's score was not favorable for use of Oxytocin. Contractions Monitor Mode: External Contraction Frequency(min): none Fetus A Monitor: External (US) Heart Rate Baseline: 140 Presentation: Cephalic Variability: Moderate (6-25 BPM) Categories: Category I FHR Rhythm: Regular Characteristics: Normal Accelerations: 15 X 15 Decelerations: None Amniotic Membrane Status: Intact Assessment and Plan Assessment and plan (1) Gestational diabetes requiring insulin: Status: Acute Assessment and plan: Pt with stable fasting CBGs using 6 units of Novolin-N at bedtime. Nl postprandial CBGs. (2) Encounter for induction of labor: Status: Acute Assessment and plan: Pt currently 39w EGA with insulin requiring diabetes who presnts for scheduled IOL. Pt has consented to cervical ripening with Misoprosol overnight and initiation of Oxytocin in the morning. Objective Abnormal lab results 09/26/24 Range/Units 17:45 WBC 17.19 H (4.4-10.8) 10^3/uL Temp Pulse Resp BP Pulse Ox 97.9 F 85 17 111/59 L 99 09/26/24 22:20 09/26/24 23:15 09/26/24 17:11 09/26/24 22:20 09/26/24 17:11 Laboratory Results WBC 17.19 10^3/uL (4.4-10.8) H 09/26/24 17:45 RBC 4.13 10^6/uL (3.93-5.22) 09/26/24 17:45 Hgb 12.3 g/dL (11.2-15.7) 09/26/24 17:45 Hct 36.1 % (36.0-46.0) 09/26/24 17:45 MCV 87 fL (80-95) 09/26/24 17:45 MCH 29.8 pg (27.0-33.0) 09/26/24 17:45 MCHC 34.1 % (32.0-36.0) 09/26/24 17:45 RDW 13.0 % (11.7-14.6) 09/26/24 17:45 Plt Count 248 10^3/uL (130-400) 09/26/24 17:45 MPV 10.5 fL (8.0-11.0) 09/26/24 17:45 Urine Opiates Screen Negative (Negative) 09/26/24 17:30 Ur Barbiturates Screen Negative (Negative) 09/26/24 17:30 Ur Tricyclics Screen Negative (Negative) 09/26/24 17:30 Ur Amphetamines Screen Negative (Negative) 09/26/24 17:30 U Benzodiazepines Scrn Negative (Negative) 09/26/24 17:30 Urine Cocaine Screen Negative (Negative) 09/26/24 17:30 Ur THC Screen Negative (Negative) 09/26/24 17:30 ABO/Rh B Positive 09/26/24 17:45 Antibody Screen NEGATIVE 09/26/24 17:45 Vital Signs Reviewed: Yes Results Hemoglobin/Hematocrit: Hgb 12.3 g/dL (11.2-15.7) 09/26/24 17:45 Hct 36.1 % (36.0-46.0) 09/26/24 17:45 Abnormal Lab Findings: Abnormal Labs 09/26/24 17:45 WBC 17.19 H
[2024-09-27] VITALS (262 sets, daily range): BP systolic 107–135; BP diastolic 54–78; PULSE 0–118; RESP 16–18; TEMP 36.4–36.8; BMI 38.4
[2024-09-27] MEDS: miSOPROStol 25 MCG TAB PO ×2 (02:40→06:38)
--- NOTE | 2024-09-27 10:23 | W.PM.OBNL1 ---
Date of service: 09/27/24 Time of Service: 10:23 Informed Consent Informed Consent: Induction of Labor (Misoprostol for cervical ripening.) and Risk,Benefits,Alternatives Discussed Pelvic Exam Dilation: 1 Effacement (%): 60 station: -2 Cervix Position: mid Consistency: soft Contractions Contraction Frequency(min): 3-5 Contraction Duration(sec): 60 Fetus A Variability: Moderate (6-25 BPM) Categories: Category I Assessment and Plan Assessment and plan (1) Gestational diabetes requiring insulin: Status: Acute Assessment and plan: at 39 weeks. Insulin requiring gestational diabetes. Status post misoprostol x 4 doses. Will begin Pitocin augmentation. Expectations set. Anesthesia has seen her for a preepidural evaluation. (2) Encounter for induction of labor: Status: Acute Objective Abnormal lab results 09/26/24 Range/Units 17:45 WBC 17.19 H (4.4-10.8) 10^3/uL Temp Pulse Resp BP Pulse Ox 98.2 F 89 16 132/70 99 09/27/24 08:56 09/27/24 10:22 09/27/24 08:56 09/27/24 08:56 09/26/24 17:11 Laboratory Results WBC 17.19 10^3/uL (4.4-10.8) H 09/26/24 17:45 RBC 4.13 10^6/uL (3.93-5.22) 09/26/24 17:45 Hgb 12.3 g/dL (11.2-15.7) 09/26/24 17:45 Hct 36.1 % (36.0-46.0) 09/26/24 17:45 MCV 87 fL (80-95) 09/26/24 17:45 MCH 29.8 pg (27.0-33.0) 09/26/24 17:45 MCHC 34.1 % (32.0-36.0) 09/26/24 17:45 RDW 13.0 % (11.7-14.6) 09/26/24 17:45 Plt Count 248 10^3/uL (130-400) 09/26/24 17:45 MPV 10.5 fL (8.0-11.0) 09/26/24 17:45 Urine Opiates Screen Negative (Negative) 09/26/24 17:30 Ur Barbiturates Screen Negative (Negative) 09/26/24 17:30 Ur Tricyclics Screen Negative (Negative) 09/26/24 17:30 Ur Amphetamines Screen Negative (Negative) 09/26/24 17:30 U Benzodiazepines Scrn Negative (Negative) 09/26/24 17:30 Urine Cocaine Screen Negative (Negative) 09/26/24 17:30 Ur THC Screen Negative (Negative) 09/26/24 17:30 ABO/Rh B Positive 09/26/24 17:45 Antibody Screen NEGATIVE 09/26/24 17:45 Results Hemoglobin/Hematocrit: Hgb 12.3 g/dL (11.2-15.7) 09/26/24 17:45 Hct 36.1 % (36.0-46.0) 09/26/24 17:45 Abnormal Lab Findings: Abnormal Labs 09/26/24 17:45 WBC 17.19 H
[2024-09-27] MEDS: Normal Saline Flush 10 ML SYR IVP ×3 (10:30→22:17)
--- NOTE | 2024-09-27 10:37 | W.ANESPRE ---
General Info Date of Service Date Performed: 09/27/24 Height: 5 ft 2 in Weight: 95.254 kg Body Mass Index (BMI): 38.4 Meds Allergies and Home Medications Allergies Allergy/AdvReac Type Severity Reaction Status Date / Time clarithromycin (From Biaxin) Allergy Unknown Other (See Verified 09/15/24 09:43 Comment) erythromycin estolate (From Allergy Unknown Other (See Verified 09/15/24 09:43 Ilosone) Comment) asparagus Allergy Nausea Unverified 09/15/24 09:43 DUST MITES Allergy Unknown Other (See Uncoded 09/15/24 09:43 Comment) red wine Allergy Other (See Uncoded 09/15/24 09:43 Comment) Home Medication ?Medication ?Instructions ?Recorded hydroxyzine HCl 25 mg tablet 25 mg PO ONCE PRN 02/06/24 magnesium citrate,mag oxide 250 mg 500 mg PO DAILY 05/17/24 capsule blood-glucose meter (FreeStyle #1 ea 07/12/24 Lite Meter kit) blood sugar diagnostic (FreeStyle #100 ea 07/19/24 Lite Strips) lancets 28 gauge (FreeStyle #100 ea 07/28/24 Lancets) levothyroxine 25 mcg tablet 25 mcg PO DAILY #30 tabs 08/20/24 pen needle, diabetic 29 gauge x #100 ea 08/20/24 1 (Ultra-Thin II Insulin Pen [place]) insulin NPH isoph U-100 human 100 6 unit (0.06 mL) subcut QPM #15 mL 08/25/24 unit/mL (3 mL) subcutaneous pen (Novolin N FlexPen) Current Visit Medications: Current Medications Generic Name Dose Route Start Last Admin Trade Name Freq PRN Reason Stop Dose Admin Ringer's Solution 1,000 mls @ 200 mls/hr 09/26/24 18:00 IV [facility] Ringer's Solution 1,000 mls @ 125 mls/hr 09/27/24 10:30 IV [facility] Oxytocin/Sodium Chloride 30 unit in 500 mls @ 2 mls/hr 09/27/24 10:30 Pitocin/Normal Saline IV [facility] Protocol 2 MILLIUNITS/MIN IV Miscellaneous Supplies 1 each 09/26/24 18:00 Iv Access IV DIRECTED [facility] IV Miscellaneous Supplies 1 each 09/27/24 10:30 Iv Access IV DIRECTED [facility]IA Misoprostol 25 mcg 09/26/24 18:00 09/27/24 06:38 Misoprostol 25 Mcg Tab PO 25 mcg Q4H DELIA Administration Sodium Chloride 0 ml 09/26/24 18:00 Normal Saline Flush 10 Ml Syr IVP PRN PRN Sodium Chloride 0 ml 09/26/24 18:00 09/26/24 20:00 Normal Saline Flush 10 Ml Syr IVP Not Given BID DELIA Sodium Chloride 0 ml 09/26/24 18:00 Normal Saline 10 Ml Vial IJ DIRECTED PRN Sodium Chloride 0 ml 09/27/24 10:25 Normal Saline Flush 10 Ml Syr IVP PRN PRN Sodium Chloride 0 ml 09/27/24 20:00 Normal Saline Flush 10 Ml Syr IVP BID DELIA Sodium Chloride 0 ml 09/27/24 10:25 Normal Saline 10 Ml Vial IJ DIRECTED PRN Terbutaline Sulfate 0.25 mg 09/26/24 18:00 Terbutaline 1 Mg/Ml Vial SC PRN PRN Zolpidem Tartrate 10 mg 09/26/24 18:00 09/26/24 22:23 Zolpidem 5 Mg Tab PO 09/28/24 06:00 Not Given 2100 DELIA PFSH Active Problems Active Problems: Problem Status Onset Code Encounter for induction of labor Acute Z34.90 Grief Chronic F43.21 Gestational diabetes requiring insulin Acute O24.414 Hypothyroid Chronic E03.9 Acute Z34.90 Medical History Medical History Family history of diabetes mellitus Family history of drug use Elevated TSH Vaginal discharge during History of tobacco abuse Surgical History Surgical History (System 09/03/23 @ 15:47 by Jesenia Padron) Status post tonsillectomy Tonsillectomy (10/26/12) Myringotomy w/ PE (pressure equalizing) tubes AN INFANT ILEUS (11/12/98) Tobacco Smoking/Tobacco Use Status: Former Tobacco Use Second hand exposure: Yes Alcohol Alcohol Intake: former Substance Use Substance use: Never Substance use type: does not use Prental History History 1 Para 0 Hx # Term Pregnancies 0 Multiple births 0 Hx # Pregnancies 0 Ectopic pregnancies 0 AB induced 0 Hx Number of Living Children 0 AB spontaneous 0 Vital Signs and Lab Results Vital Signs Most Recent Vital Signs in EMR: Most Recent Vital Signs Temp Pulse Resp BP Pulse Ox 36.8 C 101 H 16 132/70 99 09/27/24 08:56 09/27/24 10:34 09/27/24 08:56 09/27/24 08:56 09/26/24 17:11 Point of Care Results Point of Care Results: Finger Stick Blood Glucose 80 09/27/24 06:35 Lab Results 09/26/24 17:45 Blood Type / Crossmatch: Antibody Screen NEGATIVE 09/26/24 Complete Blood Count: White Blood Count 17.19 10^3/uL (4.4-10.8) H 09/26/24 17:45 Red Blood Count 4.13 10^6/uL (3.93-5.22) 09/26/24 17:45 Hemoglobin 12.3 g/dL (11.2-15.7) 09/26/24 17:45 Hematocrit 36.1 % (36.0-46.0) 09/26/24 17:45 Platelet Count 248 10^3/uL (130-400) 09/26/24 17:45 Complete Metabolic Panel: No Data to Display Liver Function Panel: No Data to Display Coagulation Panel: No Data to Display Cardiac Panel: No Data to Display Arterial Blood Gas: No Data to Display Venous Blood Gas: No Data to Display Pancreas Panel: No Data to Display Thyroid Panel: Thyroid Stimulating Hormone (TSH) 2.74 uIU/mL (0.36-3.74) 09/03/24 09:25 Infectious Disease: No Data to Display Blood Cultures: No Data to Display Toxicology Panel: Urine Amphetamines Screen Negative (Negative) 09/26/24 17:30 Urine Benzodiazepines Screen Negative (Negative) 09/26/24 17:30 Urine Barbiturates Screen Negative (Negative) 09/26/24 17:30 Urine Cocaine Screen Negative (Negative) 09/26/24 17:30 Urine Opiates Screen Negative (Negative) 09/26/24 17:30 Ur Tricyclic Antidepressants Screen Negative (Negative) 09/26/24 17:30 Ur Tetrahydrocannabinol (THC) Scrn Negative (Negative) 09/26/24 17:30 Panel: No Data to Display Anesthesia Assessment and Plan Anesthesia History Personal History: No History of Anesthesia Complications Family History: No Family History of Anesthesia Complications Exercise Tolerance Exercise Tolerance: Metabolic Equivalents>4 Pertinent Negatives Pertinent Negatives: No Symptoms of GERD Cardiac & Pulmonary Exam Cardiac Exam: Normal S1/S2 Heart Sounds Pulmonary Exam: Clear Bilateral Breath Sounds Implantable Cardiac Device Does patient have a Pacemaker or an ICD?: No Airway Exam Known Difficult Airway: No Mallampati Class: 2 Mouth Opening: Normal (> 3cm) Thyromental Distance: Greater than 3 cm Neck Range of Motion: Full ROM Neck Circumference: Normal Teeth Condition: Normal Dentition ASA Classification ASA Score: ASA 2 Emergency Case?: No NPO Status NPO Status: NPO Clear Liquids>2 hours Status Status: Confirmed (39 weeks) Anesthesia Plan Resuscitation Status: Full Code Anesthesia Technique: Labor Epidural Airway Planned: Natural Airway Monitors Used: Standard Monitors Preoperative Comments:: Healthy 28yo with gestational diabetes here for induction at 39 weeks. No heart or lung disease. Consented for both Labor Epidural and/or SAB if proceeds to . Risk/benefits discussed an questions answered. Deon Michel CRNA
[2024-09-27] MEDS: Oxytocin/Normal Saline 30 UNIT/500 ML BAG 2 UNITS IV (10:45)
[2024-09-27] MEDS: Lactated Ringers 1,000 ML 125 ML IV (10:49)
--- NOTE | 2024-09-27 16:54 | W.PM.OBNL1 ---
Date of service: 09/27/24 Time of Service: 16:54 Informed Consent Informed Consent: Induction of Labor (Misoprostol for cervical ripening.) and Risk,Benefits,Alternatives Discussed Objective Abnormal lab results 09/26/24 Range/Units 17:45 WBC 17.19 H (4.4-10.8) 10^3/uL Temp Pulse Resp BP Pulse Ox 97.5 F L 68 16 133/78 99 09/27/24 13:48 09/27/24 16:50 09/27/24 13:48 09/27/24 16:47 09/26/24 17:11 Laboratory Results WBC 17.19 10^3/uL (4.4-10.8) H 09/26/24 17:45 RBC 4.13 10^6/uL (3.93-5.22) 09/26/24 17:45 Hgb 12.3 g/dL (11.2-15.7) 09/26/24 17:45 Hct 36.1 % (36.0-46.0) 09/26/24 17:45 MCV 87 fL (80-95) 09/26/24 17:45 MCH 29.8 pg (27.0-33.0) 09/26/24 17:45 MCHC 34.1 % (32.0-36.0) 09/26/24 17:45 RDW 13.0 % (11.7-14.6) 09/26/24 17:45 Plt Count 248 10^3/uL (130-400) 09/26/24 17:45 MPV 10.5 fL (8.0-11.0) 09/26/24 17:45 Urine Opiates Screen Negative (Negative) 09/26/24 17:30 Ur Barbiturates Screen Negative (Negative) 09/26/24 17:30 Ur Tricyclics Screen Negative (Negative) 09/26/24 17:30 Ur Amphetamines Screen Negative (Negative) 09/26/24 17:30 U Benzodiazepines Scrn Negative (Negative) 09/26/24 17:30 Urine Cocaine Screen Negative (Negative) 09/26/24 17:30 Ur THC Screen Negative (Negative) 09/26/24 17:30 ABO/Rh B Positive 09/26/24 17:45 Antibody Screen NEGATIVE 09/26/24 17:45 Subjective Interval history since last seen: Patient seen this afternoon. Increased discomfort with contractions. Small amount of cervical change to approximately 2 cm 60%, -1 station. Contractions every 3 to 5 minutes. Category 1 heart rate tracing. Discussed continued increasing her Pitocin augmentation and artificial rupture of membranes when warranted. All questions answered. Results Hemoglobin/Hematocrit: Hgb 12.3 g/dL (11.2-15.7) 09/26/24 17:45 Hct 36.1 % (36.0-46.0) 09/26/24 17:45 Abnormal Lab Findings: Abnormal Labs 09/26/24 17:45 WBC 17.19 H
--- NOTE | 2024-09-27 18:43 | W.PM.OBNL1 ---
Date of service: 09/27/24 Time of Service: 18:43 Informed Consent Informed Consent: Induction of Labor (Misoprostol for cervical ripening.) and Risk,Benefits,Alternatives Discussed Objective Temp Pulse Resp BP Pulse Ox 98.2 F 93 H 18 133/78 99 09/27/24 16:47 09/27/24 18:42 09/27/24 16:47 09/27/24 16:47 09/26/24 17:11 Laboratory Results WBC 17.19 10^3/uL (4.4-10.8) H 09/26/24 17:45 RBC 4.13 10^6/uL (3.93-5.22) 09/26/24 17:45 Hgb 12.3 g/dL (11.2-15.7) 09/26/24 17:45 Hct 36.1 % (36.0-46.0) 09/26/24 17:45 MCV 87 fL (80-95) 09/26/24 17:45 MCH 29.8 pg (27.0-33.0) 09/26/24 17:45 MCHC 34.1 % (32.0-36.0) 09/26/24 17:45 RDW 13.0 % (11.7-14.6) 09/26/24 17:45 Plt Count 248 10^3/uL (130-400) 09/26/24 17:45 MPV 10.5 fL (8.0-11.0) 09/26/24 17:45 Urine Opiates Screen Negative (Negative) 09/26/24 17:30 Ur Barbiturates Screen Negative (Negative) 09/26/24 17:30 Ur Tricyclics Screen Negative (Negative) 09/26/24 17:30 Ur Amphetamines Screen Negative (Negative) 09/26/24 17:30 U Benzodiazepines Scrn Negative (Negative) 09/26/24 17:30 Urine Cocaine Screen Negative (Negative) 09/26/24 17:30 Ur THC Screen Negative (Negative) 09/26/24 17:30 ABO/Rh B Positive 09/26/24 17:45 Antibody Screen NEGATIVE 09/26/24 17:45 Subjective Interval history since last seen: Patient seen and examined this evening. Uncomfortable with contractions. Pitocin at 18 milliunits. Contractions every 2 minutes. Category 1 heart rate tracing. Cervical exam unchanged from previous. In light of a day of Pitocin augmentation with no significant cervical change we will discontinue her Pitocin. Ongoing cervical ripening through the night tonight, Cervidil versus Hill balloon. Patient may eat, shower, rest while cervical ripening is in process. Anticipate resumption of Pitocin in the a.m. Results Hemoglobin/Hematocrit: Hgb 12.3 g/dL (11.2-15.7) 09/26/24 17:45 Hct 36.1 % (36.0-46.0) 09/26/24 17:45 Abnormal Lab Findings: Abnormal Labs 09/26/24 17:45 WBC 17.19 H
--- NOTE | 2024-09-27 20:27 | W.PM.OBNL1 ---
Date of service: 09/27/24 Time of Service: 20:27 Informed Consent Informed Consent: Induction of Labor (Misoprostol for cervical ripening.) and Risk,Benefits,Alternatives Discussed Objective Temp Pulse Resp BP Pulse Ox 98.2 F 80 18 116/75 99 09/27/24 19:28 09/27/24 19:54 09/27/24 16:47 09/27/24 19:28 09/26/24 17:11 Laboratory Results WBC 17.19 10^3/uL (4.4-10.8) H 09/26/24 17:45 RBC 4.13 10^6/uL (3.93-5.22) 09/26/24 17:45 Hgb 12.3 g/dL (11.2-15.7) 09/26/24 17:45 Hct 36.1 % (36.0-46.0) 09/26/24 17:45 MCV 87 fL (80-95) 09/26/24 17:45 MCH 29.8 pg (27.0-33.0) 09/26/24 17:45 MCHC 34.1 % (32.0-36.0) 09/26/24 17:45 RDW 13.0 % (11.7-14.6) 09/26/24 17:45 Plt Count 248 10^3/uL (130-400) 09/26/24 17:45 MPV 10.5 fL (8.0-11.0) 09/26/24 17:45 Urine Opiates Screen Negative (Negative) 09/26/24 17:30 Ur Barbiturates Screen Negative (Negative) 09/26/24 17:30 Ur Tricyclics Screen Negative (Negative) 09/26/24 17:30 Ur Amphetamines Screen Negative (Negative) 09/26/24 17:30 U Benzodiazepines Scrn Negative (Negative) 09/26/24 17:30 Urine Cocaine Screen Negative (Negative) 09/26/24 17:30 Ur THC Screen Negative (Negative) 09/26/24 17:30 ABO/Rh B Positive 09/26/24 17:45 Antibody Screen NEGATIVE 09/26/24 17:45 Subjective Interval history since last seen: Patient seen this evening. Still uncomfortable with contractions off Pitocin. Leatha every 3 to 5 minutes. Previously category 1 strip. Accu-Cheks are appropriate. We discussed ongoing management. At this point, too frequent contractions for Cervidil or prostaglandins. On desirous of Hill catheter. Offered therapeutic rest with morphine IM. Patient is receptive to this. All questions answered Results Hemoglobin/Hematocrit: Hgb 12.3 g/dL (11.2-15.7) 09/26/24 17:45 Hct 36.1 % (36.0-46.0) 09/26/24 17:45 Abnormal Lab Findings: Abnormal Labs 09/26/24 17:45 WBC 17.19 H
[2024-09-27] MEDS: MORPHine 10 MG/ML VIAL IM (20:46)
[2024-09-27] MEDS: Ondansetron 4 MG/2 ML VIAL IVP (22:17)
[2024-09-27] MEDS: Dinoprostone-CERVICAL 10 MG VSUPP VG (22:54)
--- NOTE | 2024-09-27 22:56 | W.PM.OBNL1 ---
Date of service: 09/27/24 Time of Service: 22:56 Informed Consent Informed Consent: Induction of Labor (Misoprostol for cervical ripening.) and Risk,Benefits,Alternatives Discussed Pelvic Exam Dilation: 2 Effacement (%): 70 station: -1 Cervix Position: anterior Consistency: soft Objective Temp Pulse Resp BP Pulse Ox 97.9 F 88 18 107/54 L 99 09/27/24 22:22 09/27/24 22:53 09/27/24 16:47 09/27/24 22:22 09/26/24 17:11 Laboratory Results WBC 17.19 10^3/uL (4.4-10.8) H 09/26/24 17:45 RBC 4.13 10^6/uL (3.93-5.22) 09/26/24 17:45 Hgb 12.3 g/dL (11.2-15.7) 09/26/24 17:45 Hct 36.1 % (36.0-46.0) 09/26/24 17:45 MCV 87 fL (80-95) 09/26/24 17:45 MCH 29.8 pg (27.0-33.0) 09/26/24 17:45 MCHC 34.1 % (32.0-36.0) 09/26/24 17:45 RDW 13.0 % (11.7-14.6) 09/26/24 17:45 Plt Count 248 10^3/uL (130-400) 09/26/24 17:45 MPV 10.5 fL (8.0-11.0) 09/26/24 17:45 Urine Opiates Screen Negative (Negative) 09/26/24 17:30 Ur Barbiturates Screen Negative (Negative) 09/26/24 17:30 Ur Tricyclics Screen Negative (Negative) 09/26/24 17:30 Ur Amphetamines Screen Negative (Negative) 09/26/24 17:30 U Benzodiazepines Scrn Negative (Negative) 09/26/24 17:30 Urine Cocaine Screen Negative (Negative) 09/26/24 17:30 Ur THC Screen Negative (Negative) 09/26/24 17:30 ABO/Rh B Positive 09/26/24 17:45 Antibody Screen NEGATIVE 09/26/24 17:45 Subjective Interval history since last seen: Patient seen and examined. Leatha approximately every 10 minutes. Will continue cervical ripening with Cervidil. Cervix is now 2 cm 70%, -2 significantly softer than previous. Cervidil placed without difficulty Results Hemoglobin/Hematocrit: Hgb 12.3 g/dL (11.2-15.7) 09/26/24 17:45 Hct 36.1 % (36.0-46.0) 09/26/24 17:45 Abnormal Lab Findings: Abnormal Labs 09/26/24 17:45 WBC 17.19 H
[2024-09-28] VITALS (180 sets, daily range): BP systolic 97–138; BP diastolic 52–85; PULSE 65–167; RESP 12–17; TEMP 36.5–36.8; O2SAT 82–100
--- NOTE | 2024-09-28 03:29 | W.PM.OBNL1 ---
Date of service: 09/28/24 Time of Service: 03:30 Informed Consent Informed Consent: Induction of Labor (Misoprostol for cervical ripening.) and Risk,Benefits,Alternatives Discussed Pelvic Exam Dilation: 2 Effacement (%): 80 station: -1 Cervix Position: anterior Consistency: soft Assessment and Plan Assessment and plan (1) : Status: Acute Assessment and plan: Labor induction at 39 weeks and 1 day. Insulin requiring gestational diabetes. Early in the labor process. Contraction pain is not tolerable. Category 1 heart rate tracing. Epidural requested. Anesthesia notified. Once more comfortable, will resume augmentation of labor as Cervidil removed. Goal (2) Encounter for induction of labor: Status: Acute (3) Gestational diabetes requiring insulin: Status: Acute Objective Temp Pulse Resp BP Pulse Ox 97.7 F 91 H 18 114/61 99 09/28/24 01:26 09/28/24 03:29 09/27/24 16:47 09/28/24 01:26 09/26/24 17:11 Laboratory Results WBC 17.19 10^3/uL (4.4-10.8) H 09/26/24 17:45 RBC 4.13 10^6/uL (3.93-5.22) 09/26/24 17:45 Hgb 12.3 g/dL (11.2-15.7) 09/26/24 17:45 Hct 36.1 % (36.0-46.0) 09/26/24 17:45 MCV 87 fL (80-95) 09/26/24 17:45 MCH 29.8 pg (27.0-33.0) 09/26/24 17:45 MCHC 34.1 % (32.0-36.0) 09/26/24 17:45 RDW 13.0 % (11.7-14.6) 09/26/24 17:45 Plt Count 248 10^3/uL (130-400) 09/26/24 17:45 MPV 10.5 fL (8.0-11.0) 09/26/24 17:45 Urine Opiates Screen Negative (Negative) 09/26/24 17:30 Ur Barbiturates Screen Negative (Negative) 09/26/24 17:30 Ur Tricyclics Screen Negative (Negative) 09/26/24 17:30 Ur Amphetamines Screen Negative (Negative) 09/26/24 17:30 U Benzodiazepines Scrn Negative (Negative) 09/26/24 17:30 Urine Cocaine Screen Negative (Negative) 09/26/24 17:30 Ur THC Screen Negative (Negative) 09/26/24 17:30 ABO/Rh B Positive 09/26/24 17:45 Antibody Screen NEGATIVE 09/26/24 17:45 Subjective Interval history since last seen: Patient seen and reevaluated. More painful contractions every 4 to 10 minutes. Category 1 heart rate tracing. Requesting further pain control. Has had morphine for rest, nitrous. Requesting epidural. Cervical exam, 2 cm, 80%, -1 station. Anesthesia notified for epidural placement. Results Hemoglobin/Hematocrit: Hgb 12.3 g/dL (11.2-15.7) 09/26/24 17:45 Hct 36.1 % (36.0-46.0) 09/26/24 17:45 Abnormal Lab Findings: Abnormal Labs 09/26/24 17:45 WBC 17.19 H
[2024-09-28] MEDS: Lactated Ringers 1,000 ML 125 ML IV ×2 (05:08→10:27)
[2024-09-28] MEDS: FentaNYL/ROPIvacaine 2 mcg/ml and 0.1% 200 ML CADD Cassette EP (05:09)
--- NOTE | 2024-09-28 05:13 | W.ANESNEU ---
Epidural/Spinal Catheter Date Performed: 09/28/24 Procedure Start: 04:05 Procedure Stop: 04:45 Requesting Provider: Meryl Urbina Procedure Location: Obstetrics Reason Performed: Labor Epidural Standard Monitors Applied: ECG, Blood Pressure, SpO2 and See EMR for corresponding vital signs Patient Position: Sitting Sedation Given (Indicate Dose Given): No Sedation given Patient Mental Status: Awake Sterility: Hand Hygiene, Surgical Cap, Surgical Mask, Sterile Gloves, Sterile Drape/Sheet, Eye Protection and Chlorhexidine Procedure Location: L3-L4 Interspace Epidural Needle: Tuohy 18 Gauge Needle Length: 3.5 Inch Needle Approach: Midline Epidural Procedure: Skin Prepped, Sterile Drape Placed, 1% Lidocaine to skin and subcutaneous tissue with 25G needle, Tuohy Needle placed, VERNA to Saline Used, Epidural Catheter Placed, Negative Heme, Negative CSF Flow and Tuohy Needle Removed Catheter Placed?: Catheter Placed Test Dose (Indicate Dose Given): 3ml 1.5% Lidocaine with 1:200K Epinephrine Given and Negative Test Dose Loss of Resistance Depth (cm): 7 Catheter depth at skin (cm): 12 Dressing: [place] Dressing Placed, Tegaderm Applied, Mastisol Used and Dressing reinforced with Tape Epidural Provider Bolus (Indicate Dose Given): Total Ropivacaine 0.1% with Fentanyl 2mcg/ml Given from pump. (ml) Dose:: 8cc Additives (Indicate Dose Given ): None Infusion Medication: Medication Infusion Began Medication Infusion: Ropivacaine 0.1% with Fentanyl 2mcg/ml Maintenance Infusion Rate (ml/hour): 10 PCEA Bolus Dose (ml): 5 Block Level: T8 Paresthesia: None Ultrasound: Used to alvina site Number of Attempts (See previous attempts in note section): 2 Procedure Tolerated: No Complications and Patient tolerated well Procedure Outcome: Successful Performed By: Morgan Michel
--- NOTE | 2024-09-28 07:01 | PGE_ITS ---
Date of service: 09/28/24 Time of Service: 07:01 Informed Consent Informed Consent: Induction of Labor (Misoprostol for cervical ripening.) and Risk,Benefits,Alternatives Discussed Pelvic Exam Dilation: 4 Effacement (%): 100 station: 0 Fetus A Heart Rate Baseline: 150 Presentation: Cephalic Variability: Moderate (6-25 BPM) Categories: Category I Assessment and Plan Assessment and plan (1) : Status: Acute Assessment and plan: at 39 weeks and 2 days today. Insulin requiring gestational diabetes. Overall doing well with her labor induction. Received misoprostol for cervical ripening with subsequent Pitocin augmentation of her labor, followed by Cervidil which was removed after approximately 4 hours. She had spontaneous rupture of membranes and is now 4 cm and comfortable with an epidural and would anticipate vaginal . (2) Gestational diabetes requiring insulin: Status: Acute (3) Encounter for induction of labor: Status: Acute Objective Temp Pulse Resp BP Pulse Ox 97.7 F 88 16 108/58 L 99 09/28/24 05:15 09/28/24 06:55 09/28/24 05:22 09/28/24 06:29 09/28/24 06:55 Laboratory Results WBC 17.19 10^3/uL (4.4-10.8) H 09/26/24 17:45 RBC 4.13 10^6/uL (3.93-5.22) 09/26/24 17:45 Hgb 12.3 g/dL (11.2-15.7) 09/26/24 17:45 Hct 36.1 % (36.0-46.0) 09/26/24 17:45 MCV 87 fL (80-95) 09/26/24 17:45 MCH 29.8 pg (27.0-33.0) 09/26/24 17:45 MCHC 34.1 % (32.0-36.0) 09/26/24 17:45 RDW 13.0 % (11.7-14.6) 09/26/24 17:45 Plt Count 248 10^3/uL (130-400) 09/26/24 17:45 MPV 10.5 fL (8.0-11.0) 09/26/24 17:45 Urine Opiates Screen Negative (Negative) 09/26/24 17:30 Ur Barbiturates Screen Negative (Negative) 09/26/24 17:30 Ur Tricyclics Screen Negative (Negative) 09/26/24 17:30 Ur Amphetamines Screen Negative (Negative) 09/26/24 17:30 U Benzodiazepines Scrn Negative (Negative) 09/26/24 17:30 Urine Cocaine Screen Negative (Negative) 09/26/24 17:30 Ur THC Screen Negative (Negative) 09/26/24 17:30 ABO/Rh B Positive 09/26/24 17:45 Antibody Screen NEGATIVE 09/26/24 17:45 Subjective Interval history since last seen: Patient seen and examined this morning. Comfortable with the epidural. Leatha every 2 to 3 minutes. [place] a gush of fluid. Confirms spontaneous rupture of membranes at approximately 7 AM. Results Hemoglobin/Hematocrit: Hgb 12.3 g/dL (11.2-15.7) 09/26/24 17:45 Hct 36.1 % (36.0-46.0) 09/26/24 17:45 Abnormal Lab Findings: Abnormal Labs 09/26/24 17:45 WBC 17.19 H
[2024-09-28] MEDS: Ondansetron 4 MG/2 ML VIAL IVP (08:24)
[2024-09-28 11:42] LABS: Fentanyl Scr w/Rfx Confirm Negative ng/mL (<1)
--- NOTE | 2024-09-28 12:18 | W.PM.OBNL1 ---
Date of service: 09/28/24 Time of Service: 12:18 Informed Consent Informed Consent: Augmentation of Labor (Oxytocin infusion.), Induction of Labor (Misoprostol for cervical ripening.), Regional Anesthesia (Epidural) and Risk,Benefits,Alternatives Discussed Pelvic Exam Dilation: 10 Effacement (%): 100 station: +1 Cervix Position: anterior Consistency: soft Vaginal Exam Presentation: Cephalic Contractions Monitor Mode: External Contraction Frequency(min): 3min Contraction Duration(sec): 60 Intensity: Moderate/Strong Fetus A Monitor: External (US) Heart Rate Baseline: 140 Presentation: Cephalic Variability: Moderate (6-25 BPM) Categories: Category I FHR Rhythm: Regular Characteristics: Normal Accelerations: 15 X 15 Decelerations: None Amniotic Membrane Status: Ruptured (SROM) Rupture Method: Spontaneous Amniotic Fluid: Clear Assessment and Plan Assessment and plan (1) Encounter for induction of labor: Status: Acute Assessment and plan: Pt will begin 2nd stage of labor. (2) Gestational diabetes requiring insulin: Status: Acute Objective Temp Pulse Resp BP Pulse Ox 97.7 F 104 H 16 119/66 98 09/28/24 05:15 09/28/24 12:11 09/28/24 05:22 09/28/24 08:08 09/28/24 07:38 Laboratory Results WBC 17.19 10^3/uL (4.4-10.8) H 09/26/24 17:45 RBC 4.13 10^6/uL (3.93-5.22) 09/26/24 17:45 Hgb 12.3 g/dL (11.2-15.7) 09/26/24 17:45 Hct 36.1 % (36.0-46.0) 09/26/24 17:45 MCV 87 fL (80-95) 09/26/24 17:45 MCH 29.8 pg (27.0-33.0) 09/26/24 17:45 MCHC 34.1 % (32.0-36.0) 09/26/24 17:45 RDW 13.0 % (11.7-14.6) 09/26/24 17:45 Plt Count 248 10^3/uL (130-400) 09/26/24 17:45 MPV 10.5 fL (8.0-11.0) 09/26/24 17:45 Urine Opiates Screen Negative (Negative) 09/26/24 17:30 Ur Barbiturates Screen Negative (Negative) 09/26/24 17:30 Ur Tricyclics Screen Negative (Negative) 09/26/24 17:30 Ur Amphetamines Screen Negative (Negative) 09/26/24 17:30 U Benzodiazepines Scrn Negative (Negative) 09/26/24 17:30 Urine Cocaine Screen Negative (Negative) 09/26/24 17:30 Ur THC Screen Negative (Negative) 09/26/24 17:30 ABO/Rh B Positive 09/26/24 17:45 Antibody Screen NEGATIVE 09/26/24 17:45 Results Hemoglobin/Hematocrit: Hgb 12.3 g/dL (11.2-15.7) 09/26/24 17:45 Hct 36.1 % (36.0-46.0) 09/26/24 17:45 Abnormal Lab Findings: Abnormal Labs 09/26/24 17:45 WBC 17.19 H
[2024-09-28] MEDS: Lidocaine 1% Multi-Dose 20 ML VIAL IJ (13:30)
--- NOTE | 2024-09-28 15:18 | W.ANESNEU ---
Epidural/Spinal Cath. Removal Date Performed: 09/28/24 Procedure Time: 15:09 Catheter Removal Type: Epidural Catheter Procedure Location: Obstetrics Patient Position: Sitting Catheter Removal Procedure: Dressing Removed, Catheter Removed without Resistance, Catheter Tip Intact and Dressing Applied Paresthesia: None Procedure Tolerated: No Complications and Patient tolerated well Procedure Outcome: Successful Performed By: Robert Palencia Supervised By: Angelo Paul
--- NOTE | 2024-09-28 15:20 | W.ANESPOSTOP ---
Postoperative Evaluation Date, Time and Location Date Performed: 09/28/24 Time Performed: 15:09 Patient Location: Obstetrics Vital Signs Most Recent Imported Vital Signs: Most Recent Vital Signs Temp Pulse Resp BP Pulse Ox 36.5 C 101 H 12 123/63 97 09/28/24 05:15 09/28/24 15:18 09/28/24 14:34 09/28/24 15:18 09/28/24 14:19 Pain Score Most Recent Pain Score: Most Recent Pain Score Pain Level 0 09/26/24 17:11 Assessment Mental Status: Awake (Alert & Oriented to Patient Baseline) Airway and Respiratory Function: Patent airway with normal (patient baseline) respiratory exam Cardiovascular Function: Hemodynamically Stable Hydration Status: Adequately Hydrated Nausea & Vomiting: No Nausea or Vomiting Pain: Pt. Denies Any Pain Peripheral Nerve Block: Patient did not receive a nerve block
[2024-09-28] MEDS: Hamamelis Leaf/Glycerin 100 EACH BOX PR (16:29)
[2024-09-28] MEDS: Dibucaine 1% 28 GM TUBE TP (16:30)
[2024-09-28] MEDS: Ibuprofen 600 MG TAB PO (18:49)
[2024-09-28] MEDS: Docusate Sodium 100 MG CAP PO (18:50)
[2024-09-28] MEDS: Acetaminophen 325 MG TAB 650 MG PO (18:50)
--- NOTE | 2024-09-28 19:53 | W.OBDELIVERY ---
Date of service: 09/28/24 Time of Service: 19:53 OB Labor/ Delivery Information Baby A Delivery Delivery Method: Spontaneaous Presentation: Cephalic Cephalic Position: Vertex Breech Position: N/A Cord Description-Baby A: 3 Vessels Amniotic Fluid: Clear Estimated Blood Loss: 100 Delivery Outcome: Liveborn Transferred: Remains with Mother Providers Doctor: Kathia Partida Nurse: Romero Reich Nurse: Ousmane Soni Labor/Delivery Information Number of Babies in Womb: 1 Group Beta Strep: Negative Rubella Status: Immune Blood Type: B+ Varicella Immunity: Immune Stages of Labor Onset of Labor Date: 09/28/24 Onset of Labor Time: 08:00 Complete Dilatation Date: 09/28/24 Complete Dilatation Time: 12:10 Labor - Stage 1 Duration: 4 hours and 10 minutes ROM Baby A: 09/28/24 ROM Baby A: 06:55 ROM Total Time- Baby A: [id number] Infant Delivery Date-Baby A: 09/28/24 Infant Delivery Time-Baby A: 13:26 Labor Stage 2 Duration: 1 hours and 16 minutes Placenta Delivery Date-Baby A: 09/28/24 Placenta Delivery Time-Baby A: 13:34 Labor-Stage 3 Duration: 8 minutes Total Length of Labor-Baby A: 5 hours and 26 minutes Placenta Cultured: No Placenta Status: Delivered Baby A Gender: Male Gestational Status: Term (39-41.6 wks) Gestational Age in Weeks/Days: 39 Weeks and 2 Days weight: 7 lb 10.753 oz Length-Baby A: 20.25 in Head Circumference-Baby A: 13.25 in Score-1 Minute Interval(Baby A) Heart Rate-1 minute: 100 BPM or Greater Respiratory Effort- 1 minute: Spontaneous/Strong Cry Muscle Tone-1 minute: Active Movement Reflex Response-1 minute: Prompt Response Color-1 minute: Bluish Hands or Feet Total Score-1 minute: 9 Score-5 Minute Interval(Baby A) Heart Rate- 5 minute: 100 BPM or Greater Respiratory Effort-5 minute: Spontaneous/Strong Cry Muscle Tone-5 minute: Active Movement Reflex Response-5 minute: Prompt Response Color-5 minute: Bluish Hands or Feet Total Score- 5 minute: 9
[2024-09-29 03:15] VITALS: BP 126/83; PULSE 74; RESP 16; TEMP 36.7; O2SAT 99
[2024-09-29] MEDS: Ibuprofen 600 MG TAB PO ×3 (03:15→16:22)
[2024-09-29] MEDS: Acetaminophen 325 MG TAB 650 MG PO ×3 (03:15→16:22)
[2024-09-29 08:13] VITALS: BP 123/67; PULSE 74; RESP 18; TEMP 36.7; O2SAT 97
--- NOTE | 2024-09-29 11:20 | OBPPV_ITS ---
Date of service: 09/29/24 Time of Service: 11:20 Assessment and Plan Assessment and plan (1) examination following vaginal delivery: Status: Acute Assessment and plan: Pt PPD1. . Pt had issues with infant latching and will see counselor today. She has tenderness at site of perineum repair. Nl appearance. Will discuss if she wishes discharge to home today or tomorrow. Subjective Subjective Interval history: PPD1 with repair of second degree perineal laceration. Pt reports that infant has issues with successfully latching. Awaiting visit from Breast Feeding Counselor. Patient comments: Pain well controlled (reports pain at perineal repair site.) and Tolerating diet; no Bowel Movement Patient's Mood: good baby status: Strong Bonding Observed (infant needed formula supplementation during night secondary to low blood sugar) Mcdaniel feeding status: Breast and formula feeding Exam Physical Exam Vital signs: Temp Pulse Resp BP Pulse Ox 98.1 F 74 18 123/67 97 09/29/24 08:13 09/29/24 08:13 09/29/24 08:13 09/29/24 08:13 09/29/24 08:13 Vital Signs Reviewed: Yes Constitutional Constitutional: no acute distress HEENT Exam HEENT Exam: Normal Neck Exam Neck Exam: Normal Respiratory Exam Respiratory Exam: Normal Cardiovascular Exam Cardiovascular Exam: Normal Fundal Exam Fundus: Below Umbilicus and Firm Exam Patient deferred: perineal exam (incision well approximated. Swelling at base of R labia present yesterday. Lower today. ) Perineum: Red and Repair Intact Genitals image: 2 1. R labial base - swelling. decreased from yesterday. No erythema or ecchymosis. Extremities Exam Extremity Exam: Normal; negative Edema Back/Spine/Pelvis Exam Back Exam: Not Done Skin Exam Skin Exam: Normal Neurological Exam Neurological Exam: Normal Psychiatric Exam Psychiatric Exam: Normal Results Hemoglobin/Hematocrit: Hgb 12.3 g/dL (11.2-15.7) 09/26/24 17:45 Hct 36.1 % (36.0-46.0) 09/26/24 17:45 Abnormal Lab Findings: Abnormal Labs 09/26/24 17:45 WBC 17.19 H
--- NOTE | 2024-09-29 17:07 | W.PM.OBDISCH ---
Date of service: 09/29/24 Time of Service: 17:08 DS: Diagnosis Discharge Diagnosis (1) examination following vaginal delivery: Status: Acute (2) Gestational diabetes requiring insulin: Status: Acute (3) Vaginal delivery: Status: Acute Discharge Plan Disposition Patient Disposition: Home Condition: Improving Discharge Details Reason For Visit: Labor induction, GDM, insulin. Admit Date/Time: 09/26/24 17:25 Admit Provider: Kathia Partida Attending Provider: Kathia Partida Primary Care Provider: Meryl Urbina Hospital Course Hospital Course: Pt was admitted to at 39w EGA for cervical ripening and oxytocin augmentation of labor at 39+w EGA. During her she was treated with a bedtime dose of Novolin with resulting excellent glycemic control. over 2nd degree perineal laceration of male infant who will be named Camilo. Pt was discharged to home PPD1 with formula supplementation. She will f/u in [facility] in 2 weeks. Home Meds and New Rx's Prescriptions: No Action magnesium citrate,mag oxide 250 mg capsule 500 mg PO DAILY levothyroxine 25 mcg tablet 25 mcg PO DAILY Qty: 30 3RF hydroxyzine HCl 25 mg tablet 25 mg PO ONCE PRN Patient Comments: TAKE 1 TABLET BY MOUTH EVERY EVENING NEEDED FOR SLEEP (DME) blood-glucose meter [FreeStyle Lite Meter] Kit See Rx Instructions .ROUTE .MEDSUPPLY Qty: 1 0RF Rx Instructions: As directed Novolin N FlexPen 100 unit/mL (3 mL) insulin pen 6 unit subcut QPM Qty: 15 1RF (DME) FreeStyle Lite Strips Strip See Rx Instructions .ROUTE .MEDSUPPLY Qty: 100 3RF Rx Instructions: QID testing (DME) lancets [FreeStyle Lancets] 28 gauge misc See Rx Instructions .ROUTE .MEDSUPPLY Qty: 100 3RF Rx Instructions: QID (DME) pen needle, diabetic [Ultra-Thin II Ins Pen [place]] 29 gauge x 1/2 needle See Rx Instructions .Route Qty: 100 0RF Rx Instructions: Inject 4units of Novolin nightly. Discharge Instructions Stand Alone Forms: BC Instructions, BC Post Vaginal Deliver Activity:: Activity as Tolerated Equipment/Supplies:: Blood Glucose Monitor Diet:: As Tolerated OB:DS Summary Summary Vaginal Delivery Method: Spontaneaous Laceration Description: Perineal Contraception Discussed Contraception Discussed: Yes (during her care.), Gender-Baby A: Male weight: 7 lb 10.753 oz Status at Discharge Functional status at discharge: independent ambulation Overall status at discharge: patient is progressing back to baseline Mental Status: mental status grossly normal Speech and Movement: speech and movement normal Mood: congruent mood Affect: normal affect Quality:SDOH Health Related Social Needs: No Data to Display Exam Physical Exam Vital signs: Temp Pulse Resp BP Pulse Ox 98.1 F 74 18 123/67 97 09/29/24 08:13 09/29/24 08:13 09/29/24 08:13 09/29/24 08:13 09/29/24 08:13 Vital Signs Reviewed: Yes Constitutional Constitutional: no acute distress Neck Exam Neck Exam: Normal Respiratory Exam Respiratory Exam: Normal Cardiovascular Exam Cardiovascular Exam: Normal Fundal Exam Fundus: Below Umbilicus and Firm Rectal Exam Rectal Exam: Not Done Extremities Exam Extremity Exam: Normal Skin Exam Skin Exam: Normal Neurological Exam Neurological Exam: Normal Psychiatric Exam Psychiatric Exam: Normal PFSH All Active Problems (Updated 09/29/24 @ 17:45 by Kathia Partida MD) Vaginal delivery (Acute) 09/28/24. IOL at 39w EGA for insulin requiring GDM. Deon Page. examination following vaginal delivery (Acute) Encounter for induction of labor (Acute) Grief (Chronic) Gestational diabetes requiring insulin (Acute) Hypothyroid (Chronic) (Acute) Medical History Family history of diabetes mellitus Family history of drug use Elevated TSH Vaginal discharge during History of tobacco abuse Surgical History (System 09/03/23 @ 15:47 by Jesenia Padron) Status post tonsillectomy Tonsillectomy (10/26/12) Myringotomy w/ PE (pressure equalizing) tubes AN ILEUS (11/12/98) Family History (Updated 03/22/24 @ 13:37 by Brenna Dailey CNM) Mother Diabetes Father Diabetes Essential hypertension COPD (chronic obstructive pulmonary disease) Emphysema lung Hypertension Substance use disorder Sister No problems noted. Brother Diabetes Alcohol abuse Substance use disorder Maternal Grandfather Heart disease Alcohol abuse Paternal Grandfather Stroke Alcohol abuse Maternal Grandmother Essential hypertension Paternal Grandmother Arthritis Social History (System 09/03/23 @ 15:47 by Jesenia Padron) Smoking/Tobacco Use Status: Former Tobacco Use Quit status: considering quitting Second Hand Exposure: Yes Smoking risk assessment performed?: Yes Alcohol Intake: former Drug use: Never Substance use type: does not use Caregiver/Support person: No Household members: significant other Housing: house Communication Needs: None Pets and animals: Yes Pets and animals: dog(s) and horse(s) Sexually active: Yes Do you think of yourself as: straight/heterosexual Current gender identity: female What is your relationship status?: living with partner How often do you talk on the phone with friends or family?: three or more times per week How often do you get together with friends or relatives?: three or more times per week How often do you attend lutheran or baptism services?: 1-3 times per year Do you belong to any clubs or organized social groups?: no Panel score (0-1 are the most socially isolated patients): 2 What type of physical activity do you participate in: other Details: Dance Duration: 45-60 minutes/day Frequency: 1-2 times per week Mirna/Gnosticist: Mormon Special mirna needs: No Seatbelt use: always Drive intox 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 Date GA/Weeks # Preg Succ Route Wgt Sex Labor Lgth Anesthesia Location Prov [facility] 09/28/24 39 No Yes vaginal 7 lb [address] Partida Delivery Date: 09/28/24 Last Updated by: Kathia Partida MD [facility] for insulin requiring gestational diabetes. DS: Data Vitals/I&O Vitals and I&O: Vital Signs Temperature 98.1 F 09/29/24 08:13 Temperature Source Oral 09/29/24 08:13 Pulse 74 09/29/24 08:13 Pulse Rhythm Regular 09/29/24 08:13 Respiratory Rate 18 09/29/24 08:13 Respiratory Depth Normal 09/27/24 19:38 Blood Pressure 123/67 09/29/24 08:13 Blood Pressure Mean 85 09/29/24 08:13 Pulse Oximetry 97 09/29/24 08:13 Oxygen Delivery Method Room Air 09/26/24 17:11 Oxygen Flow Rate 0 09/26/24 17:11 Pain Level 3 09/29/24 03:15 Intake & Output 09/28/24 09/29/24 09/29/24 23:59 11:59 23:59 Output Total 1949 Balance -1950 / -1274.951 Output: Urine 1949 Other: Urine Color Yellow Yellow Urine Appearance Clear Urine Odor None
[2024-09-29] MEDS: Hamamelis Leaf/Glycerin 100 EACH BOX PR (18:02)
== END 2024-09-29 19:26 | disposition home or self-care (01) | DRG 807 ==
PROVIDERS: Admitting Provider Obstetrics & Gynecology Gynecology; PCP Obstetrics & Gynecology; Visit Provider Obstetrics & Gynecology Gynecology
DX: O24.414 Gestational diabetes mellitus in pregnancy, insulin controlled (principal); Z37.0 Single live birth; Z3A.39 39 weeks gestation of pregnancy; O70.1 Second degree perineal laceration during delivery
CPT/HCPCS: 80307; 85027; 86850; 86900; 86901; 59200; J2003; J2270; J2405; J3490

== ENCOUNTER 2024-10-28 13:42 | Outpatient (REF) | payer BC, SELFPAY | END 2024-10-28 13:43 | disposition home or self-care (01) | LOC: LBN 13:42 | PROVIDERS: PCP Obstetrics & Gynecology; Visit Provider Advanced Practice Midwife | DX: B37.9 Candidiasis, unspecified (principal); N76.0 Acute vaginitis | CPT/HCPCS: 87480; 87510; 87660 ==

== ENCOUNTER 2024-11-10 01:56 | Outpatient (CLI) | payer BC, SELFPAY ==
[2024-11-10 08:15] LABS: FREE T4 0.82 ng/dL (0.76-1.46)
[2024-11-10 09:16] LABS: Glucose 1 Hour 85 mg/dL
[2024-11-10 09:50] LABS: GTT Comment See Comments
== END 2024-11-10 01:57 | disposition home or self-care (01) ==
PROVIDERS: PCP Obstetrics & Gynecology; Visit Provider Obstetrics & Gynecology Gynecology
DX: E03.9 Hypothyroidism, unspecified (principal); O24.414 Gestational diabetes mellitus in pregnancy, insulin controlled; O80 Encounter for full-term uncomplicated delivery
CPT/HCPCS: 36415; 82951; 84439; 84443

== ENCOUNTER 2025-06-01 14:54 | Outpatient (REF) | payer SELFPAY ==
[2025-06-01 16:08] LABS: Hemoglobin A1C 5.0 % (<5.7)
[2025-06-01 16:58] LABS: TSH 2.34 uIU/mL (0.36-3.74)
== END 2025-06-01 14:55 | disposition home or self-care (01) ==
LOC: NCHCN 14:54
PROVIDERS: PCP Obstetrics & Gynecology; Visit Provider Physician Assistant
DX: E03.9 Hypothyroidism, unspecified (principal)
CPT/HCPCS: 83036; 84443